=== PATIENT | female | born 1945 | race Caucasian/White ===

== ENCOUNTER 2016-12-24 07:23 | Outpatient (CLI) | payer MEDICARE, OTHER ==
[2016-12-24 13:41] LABS: BASOPHILS % (AUTO) 0.5 %; EOSINOPHILS # (AUTO) 0.2 10^3/uL (0.0-0.7); EOSINOPHILS % (AUTO) 3.5 %; HCT - HEMATOCRIT 38.8 % (37.0-47.0); HGB - HEMOGLOBIN 12.9 g/dL (12.0-16.0); LYMPHOCYTES # (AUTO) 1.9 10^3/uL (1.5-3.5); LYMPHOCYTES % (AUTO) 26.3 %; MEAN CORPUSCULAR HEMOGLOBIN 30.5 pg (27.0-31.0); MEAN CORPUSCULAR HGB CONC 33.3 g/dL (32.0-36.0); MEAN CORPUSCULAR VOLUME 91.5 fL (81.0-99.0); MONOCYTES # (AUTO) 0.6 10^3/uL (0.0-1.0); MONOCYTES % (AUTO) 8.7 %; NEUTROPHILS # (AUTO) 4.4 10^3/uL (1.5-6.6); RED BLOOD COUNT 4.24 10^6/uL (4.20-5.40); RED CELL DISTRIBUTION WIDTH 13.3 % (12.0-15.0); UNCORRECTED WHITE BLOOD COUNT 7.2 x10^3/uL; WHITE BLOOD COUNT 7.2 x10^3/uL (4.8-10.8)
[2016-12-24 13:48] LABS: ALBUMIN/GLOBULIN RATIO 1.3 (1.0-2.2); BILIRUBIN,TOTAL 0.6 mg/dL (0.2-1.0); BUN - BLOOD UREA NITROGEN 13 mg/dL (6-20); CALCIUM 9.2 mg/dL (8.5-10.3); CARBON DIOXIDE - CO2 30 mmol/L (21-32); CHLORIDE 104 mmol/L (101-111); CREATININE 0.9 mg/dL (0.4-1.0); GFR - MDRD 62 (>89); GLUCOSE 85 mg/dL (70-100); POTASSIUM 3.7 mmol/L (3.5-5.0); SODIUM 140 mmol/L (135-145); TOTAL PROTEIN 7.1 g/dL (6.7-8.2)
[2016-12-24 14:25] LABS: THYROID STIMULATING HORMONE 1.29 uIU/mL (0.34-5.60)
== END 2016-12-24 07:24 | disposition home or self-care (01) ==
LOC: LAB.WCP 07:23
PROVIDERS: ATTEND Family Medicine
DX: F41.9 Anxiety disorder, unspecified (principal); F32.9 Major depressive disorder, single episode, unspecified; F41.3 Other mixed anxiety disorders
CPT/HCPCS: 36415; 80053; 82607; 84443; 85025

== ENCOUNTER 2017-10-25 08:00 | Outpatient (CLI) | payer MEDICARE, OTHER ==
[2017-10-25 12:42] LABS: BASOPHILS % (AUTO) 0.5 %; EOSINOPHILS # (AUTO) 0.4 10^3/uL (0.0-0.7); EOSINOPHILS % (AUTO) 4.8 %; HGB - HEMOGLOBIN 13.7 g/dL (12.0-16.0); LYMPHOCYTES # (AUTO) 2.4 10^3/uL (1.5-3.5); LYMPHOCYTES % (AUTO) 29.9 %; MEAN CORPUSCULAR HEMOGLOBIN 29.7 pg (27.0-31.0); MEAN CORPUSCULAR HGB CONC 32.8 g/dL (32.0-36.0); MEAN CORPUSCULAR VOLUME 90.6 fL (81.0-99.0); MEAN PLATELET VOLUME 8.6 fL (7.9-10.8); MONOCYTES # (AUTO) 0.7 10^3/uL (0.0-1.0); MONOCYTES % (AUTO) 9.2 %; NEUTROPHILS # (AUTO) 4.4 10^3/uL (1.5-6.6); NEUTROPHILS % (AUTO) 55.6 %; PLT - PLATELET COUNT 309 10^3/uL (130-450); RED BLOOD COUNT 4.61 10^6/uL (4.20-5.40); RED CELL DISTRIBUTION WIDTH 13.9 % (12.0-15.0); WHITE BLOOD COUNT 7.9 x10^3/uL (4.8-10.8)
[2017-10-25 13:26] LABS: ALBUMIN/GLOBULIN RATIO 1.1 (1.0-2.2); ALKALINE PHOSPHATASE 77 IU/L (42-121); ALT ALANINE AMINOTRANSFERASE 23 IU/L (10-60); AST ASPARTATE AMINOTRANSFERASE 27 IU/L (10-42); BILIRUBIN,TOTAL 0.4 mg/dL (0.2-1.0); BUN - BLOOD UREA NITROGEN 11 mg/dL (6-20); CALCIUM 9.3 mg/dL (8.5-10.3); CARBON DIOXIDE - CO2 29 mmol/L (21-32); CHLORIDE 102 mmol/L (101-111); CHOL/HDL RATIO 2.5 (<4.4); CHOLESTEROL 194 mg/dL; CREATININE 0.8 mg/dL (0.4-1.0); GFR - MDRD 70 (>89); GLUCOSE 95 mg/dL (70-100); HDL CHOLESTEROL 78 mg/dL; LDL CHOLESTEROL,CALCULATED 101 mg/dL; LDL/HDL RATIO 1.3 (<4.4); SODIUM 140 mmol/L (135-145); TOTAL PROTEIN 7.6 g/dL (6.7-8.2); VLDL CHOLESTEROL 15 mg/dL
== END 2017-10-25 08:01 | disposition home or self-care (01) ==
LOC: LAB.WCP 08:00
PROVIDERS: ATTEND Family Medicine
DX: M51.86 Other intervertebral disc disorders, lumbar region (principal); E78.9 Disorder of lipoprotein metabolism, unspecified
CPT/HCPCS: 36415; 80053; 80061; 83721; 85025

== ENCOUNTER 2018-01-01 14:28 | Outpatient (CLI) | payer MEDICARE, OTHER ==
--- NOTE | 2018-01-02 17:00 | Mammography Report ---
DIGITAL SCREENING MAMMOGRAM: 01/01/2018 CLINICAL INDICATION: A 72-year-old with prior benign biopsy, bilateral implants for screening. TECHNIQUE: Routine CC and MLO projections as well as bilateral implant displaced views were obtained of the breasts. COMPARISON: 05/2014 FINDINGS: The breasts again demonstrate heterogeneously dense fibroglandular parenchyma bilaterally. Bilateral subpectoral implants are stable. Coarse and punctate, typically benign calcifications are present. No suspicious masses, clustered microcalcifications , or regions of architectural distortion are identified. IMPRESSION: BENIGN FINDINGS. RECOMMENDATION: Routine annual screening unless otherwise clinically indicated. BIRADS category 2 benign findings. STANDARD QUALIFYING STATEMENTS 1. This examination was reviewed with the aid of Computed-Aided Detection (CAD) . 2. A negative or benign imaging report should not delay biopsy if clinically suspicious findings are present. Consider surgical consultation if warranted. More than 5 % of cancers are not identified by imaging. 3. Dense breasts may obscure an underlying neoplasm. TD: 01/02/2018 15:09 SABINO
== END 2018-01-01 14:29 | disposition home or self-care (01) ==
LOC: DI 14:28
PROVIDERS: ATTEND Family Medicine
DX: Z12.31 Encounter for screening mammogram for malignant neoplasm of breast (principal); Z98.82 Breast implant status
CPT/HCPCS: 77067

== ENCOUNTER 2018-08-07 11:20 | Outpatient (CLI) | payer MEDICARE, OTHER ==
[2018-08-07 19:41] LABS: THYROID STIMULATING HORMONE 1.12 uIU/mL (0.34-5.60)
[2018-08-07 19:47] LABS: BASOPHILS % (AUTO) 0.6 %; EOSINOPHILS # (AUTO) 0.3 10^3/uL (0.0-0.7); EOSINOPHILS % (AUTO) 4.1 %; HGB - HEMOGLOBIN 13.4 g/dL (12.0-16.0); LYMPHOCYTES # (AUTO) 1.6 10^3/uL (1.5-3.5); LYMPHOCYTES % (AUTO) 26.3 %; MEAN CORPUSCULAR HEMOGLOBIN 29.8 pg (27.0-31.0); MEAN CORPUSCULAR VOLUME 93.1 fL (81.0-99.0); MEAN PLATELET VOLUME 8.7 fL (7.9-10.8); MONOCYTES # (AUTO) 0.6 10^3/uL (0.0-1.0); MONOCYTES % (AUTO) 10.4 %; NEUTROPHILS # (AUTO) 3.6 10^3/uL (1.5-6.6); NEUTROPHILS % (AUTO) 58.6 %; PLT - PLATELET COUNT 293 10^3/uL (130-450); RED BLOOD COUNT 4.48 10^6/uL (4.20-5.40); WHITE BLOOD COUNT 6.1 x10^3/uL (4.8-10.8)
[2018-08-07 20:30] LABS: % IRON SATURATION 27 % (20-50); ALBUMIN 3.8 g/dL (3.2-5.5); ALBUMIN/GLOBULIN RATIO 1.2 (1.0-2.2); ALKALINE PHOSPHATASE 68 IU/L (42-121); ALT ALANINE AMINOTRANSFERASE 20 IU/L (10-60); AST ASPARTATE AMINOTRANSFERASE 27 IU/L (10-42); BILIRUBIN,TOTAL 0.5 mg/dL (0.2-1.0); BUN - BLOOD UREA NITROGEN 14 mg/dL (6-20); CALCIUM 9.4 mg/dL (8.5-10.3); CARBON DIOXIDE - CO2 27 mmol/L (21-32); CHLORIDE 101 mmol/L (101-111); CREATININE 0.8 mg/dL (0.4-1.0); GFR - MDRD 70 (>89); GLUCOSE 83 mg/dL (70-100); IRON 96 ug/dL (28-170); SODIUM 134 mmol/L (135-145); TOTAL IRON BINDING CAPACITY 356 ug/dL (250-450); TRANSFERRIN 254 mg/dL (192-382)
== END 2018-08-07 23:59 | disposition home or self-care (01) ==
LOC: LAB.WCP 11:20
PROVIDERS: ATTEND Family Medicine
DX: R53.83 Other fatigue (principal); D64.9 Anemia, unspecified
CPT/HCPCS: 36415; 80053; 82607; 83540; 84443; 84466; 85025

== ENCOUNTER 2018-09-15 08:55 | Outpatient (CLI) | payer MEDICARE, OTHER ==
--- NOTE | 2018-09-15 11:55 | Mammography Report ---
Reason: BREAST LUMP OR MASS Procedure Date: 09/15/2018 Accession Number: [id number] / [id number] Procedure: MAURIZIO - Diagnostic Dig Bilat CPT Code: FULL RESULT: EXAM: Diagnostic Dig Bilat, Breast Ultrasound Right Unilateral Complete DATE: 09/15/2018 10:07 AM CLINICAL HISTORY: Palpable lump right upper outer quadrant. History of breast implants. COMPARISON: 01/01/2018 and 05/28/2014 MAMMOGRAPHY: TECHNIQUE: Bilateral CC and MLO views were obtained. Additional spot compression views are performed on the right. FINDINGS: The breast tissue is heterogeneously dense. Stable bilateral breast implants. On the left there is been no significant interval change. No suspicious masses, clustered microcalcifications, or regions of architectural distortion are identified. On the right in the area of the palpable upper outer quadrant lump 10 to 11 cm from the nipple there is a spiculated area of architectural distortion without associated microcalcifications. The right breast is otherwise unremarkable. RIGHT BREAST ULTRASOUND: TECHNIQUE: Real-time scanning by the low voltage electrician with me present in saved static images reviewed. FINDINGS: In the 9:30 position right breast 10 cm from the nipple there is a 3.1 x 3.5 cm solid complex irregular appearing area with posterior shadowing corresponding to the palpable finding. No internal vascularity is appreciated. IMPRESSION: Suspicious findings RECOMMENDATION: Ultrasound guided core biopsy right breast. Patient is scheduled for 09/16/2018 at 1:00 PM. BIRADS CATEGORY 5: Highly suspicious STANDARD QUALIFYING STATEMENTS: 1. This examination was not reviewed with the aid of Computer-Aided Detection (CAD). 2. A negative or benign imaging report should not delay biopsy if clinically suspicious findings are present. Consider surgical consultation if warrented. More than 5% of cancers are not identified by imaging. 3. Dense breasts may obscure an underlying neoplasm. 4. This examination was reviewed with the aid of 3D breast imaging (tomosynthesis).
== END 2018-09-15 08:56 | disposition home or self-care (01) ==
LOC: DI 08:55
PROVIDERS: ATTEND Internal Medicine Gastroenterology
DX: N63.11 Unspecified lump in the right breast, upper outer quadrant (principal)
CPT/HCPCS: 76641; 77066

== ENCOUNTER 2018-09-16 12:37 | Outpatient (CLI) | payer MEDICARE, OTHER ==
[2018-09-16] MEDS ORDERED: BUFFERED LIDOCAINE 10 ML SYRINGE ONE (13:15)
[2018-09-16] MEDS ORDERED: BUPIVACAINE 0.5%-EPI 1:200000 PF 10 ML VIAL ONE (13:15)
--- NOTE | 2018-09-16 16:33 | Mammography Report ---
Reason: ABN MAMMO - RT BREAST MASS Procedure Date: 09/16/2018 Accession Number: [id number] / [id number] Procedure: MAURIZIO - Diagnostic Dig RT CPT Code: FULL RESULT: EXAM: Diagnostic Dig RT, Ultrasound Biopsy Right Breast Core DATE: 09/16/2018 2:39 PM CLINICAL HISTORY: Area of architectural distortion and spiculation right upper outer quadrant approximately 11 cm from the nipple. COMPARISON: Bilateral mammography and right breast ultrasound 09/15/2018. PROCEDURE: ULTRASOUND-GUIDED NEEDLE BIOPSY RIGHT BREAST. Informed consent was obtained. Using standard aseptic technique, both 1% buffered lidocaine and Sensorcaine were injected into the right breast for local anesthesia. A small maverick was made in the skin with a #11 blade. A 14-gauge Achieve needle was used to obtain 5 specimens. A specialized biopsy marker clip was placed into the biopsy cavity under ultrasound guidance. The patient was taken to separate mammography machine and a two-view digital mammography was performed to verify the clip placement and any complications. The wound was dressed in the standard fashion. The patient was observed for approximately 15 minutes, then was discharged from diagnostic imaging Department in good condition following instructions on wound care and obtaining biopsy results. The patient is scheduled to receive the biopsy results from the referring physician. The tissue was sent for histologic analysis. RIGHT BREAST MAMMOGRAM: A postprocedure unilateral right mammogram shows appropriate clip positioning adjacent to the right upper outer quadrant architectural distortion and spiculation. IMPRESSION: Ultrasound-guided biopsy of the right breast. AN ADDENDUM WILL REMAIN TO THIS REPORT WHEN PATHOLOGY IS REVIEWED TO ESTABLISH CONCORDANCE.
[2018-09-16] MEDS ORDERED: BUFFERED LIDOCAINE 10 ML SYRINGE IU ONE (17:02)
[2018-09-16] MEDS ORDERED: BUPIVACAINE 0.5%-EPI 1:200000 PF 10 ML VIAL SUBQ ONE (17:02)
== END 2018-09-16 12:38 | disposition home or self-care (01) ==
LOC: DI 12:37
PROVIDERS: ATTEND Internal Medicine Gastroenterology
DX: C50.411 Malignant neoplasm of upper-outer quadrant of right female breast (principal); Z17.0 Estrogen receptor positive status [ER+]
CPT/HCPCS: 19083

== ENCOUNTER 2018-10-06 08:43 | Outpatient (CLI) | payer MEDICARE, OTHER ==
[2018-10-06] MEDS ORDERED: GADOBUTROL 10 MMOL/10 ML VIAL ONE (09:46)
[2018-10-06] MEDS ORDERED: GADOBUTROL 10 MMOL/10 ML VIAL IVP ONE (10:39)
--- NOTE | 2018-10-07 10:11 | MRI Report ---
Reason: BREAST CANCER,RIGHT Procedure Date: 10/06/2018 Accession Number: [id number] / [id number] Procedure: MRI - Breast W/WO Cont CPT Code: 14192 FULL RESULT: EXAM: Breast W/WO Cont DATE: 10/06/2018 10:46 AM CLINICAL HISTORY: BREAST CANCER,RIGHT COMPARISON: 09/16/2018 through 05/28/2014. TECHNIQUE: Dedicated breast coil: Axial - precontrast STIR Axial - postcontrast sequential 1 minute three-dimensional isotropic (x 5) Axial - high-resolution volumetric images CONTRAST USED: 10 mL Gadavist (gadolinium). POSTPROCESSING: Subtraction dynamic/curve analysis and multiplanar reformations with CAD stream FINDINGS: Right breast: The biopsy-proven malignancy in the right breast laterally measures 2.7 x 2.0 cm on image 427 series 601. Several avidly enhancing suspicious lymph nodes are noted reaching from the mass towards the axillary tail: Image 292, image 152, image 137 and image 292. Each of these demonstrates the same enhancement curve observed within the biopsy-proven malignancy, type III. Intact breast implant is noted. Left breast: No suspicious enhancement is identified. The breast implant appears intact. IMPRESSION: Suspicious enhancement along the right breast axillary tail lymph node chain, as described, in the setting of known right breast malignancy. No suspicious left breast findings. BI-RADS 6 COMMENT: The literature indicates that a negative dynamic breast MRI has a high sensitivity and specificity for the detection of invasive carcinoma (to a threshold of 5 mm). MRI is not reliably sensitive for detecting ductal carcinoma in situ or large invasive neoplasms with only minimal enhancement (i.e. mucinous carcinoma). Normal-appearing lymph nodes on MRI may contain microscopic tumor. Appropriate clinical mammographic and sonographic followup should be performed if recommended. Negative MRI should not dissuade further evaluation of any suspicious mammographic calcifications and/or worrisome palpable masses.
== END 2018-10-06 08:44 | disposition home or self-care (01) ==
LOC: DI 08:43
PROVIDERS: ATTEND Internal Medicine Gastroenterology
DX: C50.911 Malignant neoplasm of unspecified site of right female breast (principal); R93.89 Abnormal findings on diagnostic imaging of other specified body structures; Z98.82 Breast implant status
CPT/HCPCS: 77049; A9585

== ENCOUNTER 2018-10-15 10:43 | Outpatient (CLI) | payer MEDICARE, OTHER ==
[2018-10-15] MEDS ORDERED: BUPIVACAINE 0.5%-EPI 1:200000 PF 10 ML VIAL ONE ×2 (11:07→11:12)
[2018-10-15] MEDS ORDERED: BUFFERED LIDOCAINE 10 ML SYRINGE ONE ×2 (11:07→11:12)
[2018-10-15] MEDS ORDERED: BUPIVACAINE 0.5%-EPI 1:200000 PF 10 ML VIAL SUBQ ONE (13:05)
[2018-10-15] MEDS ORDERED: BUFFERED LIDOCAINE 10 ML SYRINGE IU ONE (13:05)
--- NOTE | 2018-10-15 16:46 | Ultrasound Report ---
Reason: RT BR CA W/ABN LYMPHNODES ON MRI Procedure Date: 10/15/2018 Accession Number: [id number] / [id number] Procedure: US - Biopsy Breast Core CPT Code: FULL RESULT: EXAM: Biopsy Breast Core DATE: 10/15/2018 12:49 PM CLINICAL HISTORY: 73-year-old with biopsy-proven malignancy upper outer right breast who underwent preoperative MRI showing a separate highly suspicious mass upper inner breast for biopsy, and an equivocal low axillary/intramammary lymph node for possible biopsy. TECHNIQUE: Informed consent was obtained. Preprocedural scanning of the axilla and upper inner breast performed by the radiologist; single site biopsy of the 2:00 breast 10 cm from the nipple was then performed following procedural scanning. Entry site was localized and marked. Skin site was prepped and draped in the usual sterile fashion. Skin and deeper tissues were anesthetized with a total of 8 cc of buffered 1% lidocaine and 9 cc of Sensorcaine. Small dermatotomy was made in the skin. 13-gauge coaxial needle guide was advanced into position. Through the needle guide, 3 passes were made with a 14-gauge Achieve needle biopsy system with returns of long cores of tissue. Tissue was sent in formalin for histologic analysis. Biopsy marker was then placed with marker position confirmed with ultrasound. Biopsy site was sterilely dressed. Patient tolerated the procedure well and was discharged in good condition. COMPARISON: Breast MRI 10/06/2018; mammograms and ultrasound from 09/16/2018 through 05/28/2014 FINDINGS: Preprocedural scanning of the right breast at 9:30 o'clock, 12 cm from the nipple demonstrates an morphologically normal 8 mm low axillary/lateral intramammary lymph node corresponding to equivocal finding at MRI. Cortical thickness is 2 mm, within normal limits. Biopsy of this lymph node therefore was not performed. Targeted ultrasound at 2:00, 10 cm from the nipple demonstrates an irregular, hypoechoic mildly vascular mass with angular an indistinct margins corresponding to the high suspicion the mass noted on MRI. Mass measures 13 x 15 x 19 mm sonographically. Biopsy of this finding was subsequently performed as described above. IMPRESSION: 1. Successful ultrasound-guided biopsy and marker placement of high suspicion 19 mm mass 2:00 right breast 10 cm from the nipple. Final disposition and recommendations are pending histology. Radiologic/pathologic concordance will be performed when the histologic results are returned; patient is planning to receive her results from Dr. Lamont Elizabeth. 2. Equivocal lymph node at MR corresponds to morphologically normal lymph node at ultrasound. Lymph node biopsy was therefore not performed.
== END 2018-10-15 10:44 | disposition home or self-care (01) ==
LOC: DI 10:43
PROVIDERS: ATTEND Internal Medicine Gastroenterology
DX: C50.211 Malignant neoplasm of upper-inner quadrant of right female breast (principal); Z17.0 Estrogen receptor positive status [ER+]; C50.411 Malignant neoplasm of upper-outer quadrant of right female breast
CPT/HCPCS: 19083

== ENCOUNTER 2018-10-22 14:11 | Outpatient (CLI) | payer MEDICARE, OTHER ==
[2018-10-22 14:31] LABS: BASOPHILS # (AUTO) 0.1 10^3/uL (0.0-0.1); BASOPHILS % (AUTO) 1.5 %; EOSINOPHILS # (AUTO) 0.3 10^3/uL (0.0-0.7); EOSINOPHILS % (AUTO) 3.7 %; HGB - HEMOGLOBIN 13.8 g/dL (12.0-16.0); LYMPHOCYTES # (AUTO) 2.4 10^3/uL (1.5-3.5); LYMPHOCYTES % (AUTO) 27.1 %; MEAN CORPUSCULAR HEMOGLOBIN 30.4 pg (27.0-31.0); MEAN CORPUSCULAR HGB CONC 33.5 g/dL (32.0-36.0); MEAN PLATELET VOLUME 8.4 fL (7.9-10.8); MONOCYTES # (AUTO) 0.7 10^3/uL (0.0-1.0); MONOCYTES % (AUTO) 8.3 %; NEUTROPHILS # (AUTO) 5.2 10^3/uL (1.5-6.6); NEUTROPHILS % (AUTO) 59.4 %; PLT - PLATELET COUNT 276 10^3/uL (130-450); RED BLOOD COUNT 4.54 10^6/uL (4.20-5.40); WHITE BLOOD COUNT 8.8 x10^3/uL (4.8-10.8)
[2018-10-22 14:54] LABS: ALBUMIN 4.2 g/dL (3.2-5.5); ALBUMIN/GLOBULIN RATIO 1.1 (1.0-2.2); BILIRUBIN,TOTAL 0.6 mg/dL (0.2-1.0); CALCIUM 9.8 mg/dL (8.5-10.3); CREATININE 0.8 mg/dL (0.4-1.0); TOTAL PROTEIN 7.9 g/dL (6.7-8.2)
--- NOTE | 2018-10-23 09:39 | XRAY Report ---
Reason: BREAST CANCER,RIGHT, [id number] Procedure Date: 10/22/2018 Accession Number: [id number] / [id number] Procedure: XR - Chest 2 View X-Ray CPT Code: 36319 FULL RESULT: EXAM: CHEST RADIOGRAPHY EXAM DATE: 10/22/2018 02:30 PM. CLINICAL HISTORY: Breast cancer, right, [id number]. COMPARISON: 01/18/2015 10:27 AM. ESOPHAGRAM 08/20/2014 9:15 AM. TECHNIQUE: 2 views. FINDINGS: Lungs/Pleura: No focal opacities evident. No pleural effusion. No pneumothorax. Normal volumes. Mediastinum: Heart and mediastinal contours are unremarkable. Other: Very large hiatal hernia with the majority of the stomach and a loop of large bowel contained within this hernia. IMPRESSION: 1. No infiltrates or edema. 2. Very large hiatal hernia containing majority of stomach and a loop of large bowel. RADIA
== END 2018-10-22 14:12 | disposition home or self-care (01) ==
LOC: LAB 14:11
PROVIDERS: ATTEND Internal Medicine Gastroenterology
DX: C50.919 Malignant neoplasm of unspecified site of unspecified female breast (principal); K44.9 Diaphragmatic hernia without obstruction or gangrene
CPT/HCPCS: 36415; 71046; 80053; 85025; 93005

== ENCOUNTER 2018-10-27 08:09 | Day surgery (SDC) | payer MEDICARE, OTHER ==
[~2018-10-27 08:09] MED LIST: ceFAZolin 2 GM/50 ML 2 GM/50 ML BAG IV ONE
[2018-10-27] MEDS ORDERED: BUFFERED LIDOCAINE 10 ML SYRINGE ONE (08:49)
[2018-10-27] MEDS ORDERED: LACTATED RINGERS 1,000 ML IV ONE ×3 (09:13→19:15)
[2018-10-27] MEDS ORDERED: LORazepam 1 MG TABLET PO ONE (10:00)
[2018-10-27] MEDS ORDERED: BUFFERED LIDOCAINE 10 ML SYRINGE IU ONE (10:55)
--- NOTE | 2018-10-27 12:08 | ANESTHESIA ---
Pre-Anesthesia VS, & Labs - Diagnosis right breast cancer - Procedure right breast lumpectomy X2 after needle localization, right axillary node, sentinal node biopsy Vital Signs: Temp Pulse Resp BP Pulse Ox 36.4 C L 80 16 143/82 H 94 10/27/18 08:30 10/27/18 08:30 10/27/18 08:30 10/27/18 08:30 10/27/18 08:30 Height 5 ft 2 in Weight (kg) 97 kg Body Mass Index 40.2 - NPO >8 hours - Is Patient ?: No Home Medications and Allergies Home Medications: Ambulatory Orders Cyanocobalamin (Vitamin B-12) [Cyanocobalamin Injection] 1,000 mcg IJ ONCE 10/22/18 Oxybutynin Chloride [Ditropan Xl] 15 mg PO DAILY 10/22/18 clonazePAM [Clonazepam] 1 mg PO BID PRN 10/22/18 Active Medications Lidocaine/Sodium Bicarbonate (Buffered Lidocaine) 20 ml IU ONCE ONE Stop: 10/27/18 10:56 Last Admin: 10/27/18 10:56 Dose: 20 ml Simvastatin 20 mg PO QPM 09/07/14 Cyanocobalamin (Vitamin B-12) [Cyanocobalamin Injection] 1,000 mcg IJ ONCE 10/22/18 Oxybutynin Chloride [Ditropan Xl] 15 mg PO DAILY 10/22/18 clonazePAM [Clonazepam] 1 mg PO BID PRN 10/22/18 Allergies/Adverse Reactions: Allergies Allergy/AdvReac Type Severity Reaction Status Date / Time pseudoephedrine HCl * Allergy Rash Unverified 06/09/14 14:41 [From Actifed] triprolidine HCl * Allergy Rash Unverified 06/09/14 14:41 [From Actifed] Anes History & Medical History - Anesthetic History Anesthesia Complications: reports: No previous complications - Medical History Cardiovascular: reports: High cholesterol Pulmonary: reports: None Gastrointestinal: reports: Hiatal hernia Urinary: reports: None Musculoskeletal: reports: Osteoarthritis, Chronic back pain Endocrine/Autoimmune: reports: None Skin: reports: Other - Surgical History General: Colonoscopy, EGD Eyes Ears Nose Throat (EENT): Tonsil/Adenoidectomy Exam General: Alert Dental: WNL Mouth Opening: Greater than 4 Fingerbreadths Mallampati classification: II Thyromental Distance: greater than 6 cm Respiratory: Lungs clear Cardiovascular: Regular rate, Normal S1, Normal S2 Mental/Cognitive Status: Alert/Oriented X3 Plan Anesthesia Type: General Consent for Procedure(s) Verified and Reviewed: Yes Code Status: Attempt Resuscitation ASA classification: 2-Mild systemic disease Is this case an emergency?: No
[2018-10-27] MEDS ORDERED: BUPIVACAINE 0.5% PF 30 ML VIAL INFIL ONE (15:27)
[2018-10-27] MEDS ORDERED: METHYLENE BLUE 0.5% 50 MG/10 ML AMPULE IV ONE (15:46)
--- NOTE | 2018-10-27 15:51 | Nuclear Medicine Report ---
Reason: RT BREAST CA Procedure Date: 10/27/2018 Accession Number: [id number] / [id number] Procedure: NM - Lymph Node Scintigraphy CPT Code: FULL RESULT: EXAM: SENTINEL LYMPH NODE RADIOTRACER INJECTION WITH IMAGING EXAM DATE: 10/27/2018 11:58 AM. CLINICAL HISTORY: 73-year-old female with breast cancer, undergoing a preoperative procedure. COMPARISON: None. TECHNIQUE: The injection site of the right breast was cleansed according to protocol. Next, a total of 1.5 mCi Tc-99m filtered sulfur colloid in 1 cc saline was injected into the same site. After appropriate delay, the patient was imaged according to the protocol. FINDINGS: Right axillary lymph node drainage is identified with up to 2 sentinel nodes visualized prior to ending the examination. The patient tolerated the procedure well. IMPRESSION: 1. Braxton lymph node injection, without complication. 2. Two foci in the right axilla, compatible with sentinel lymph node. RADIA ADDENDUM: 10/28/18 08:17 The actual dose delivered to the patient is 0.5 mCi of technetium 99 filtered sulfur colloid in 1 cc saline.
[2018-10-27] MEDS ORDERED: HYDROmorphone 1 MG/ML CARPUJECT IVP ONE (16:00)
[2018-10-27] MEDS ORDERED: ePHEDrine 50 MG/ML VIAL IVP ONE (16:00)
[2018-10-27] MEDS ORDERED: PHENYLEPHRINE 50 MG/5 ML VIAL IV ONE (16:00)
[2018-10-27] MEDS ORDERED: fentaNYL 100 MCG/2 ML VIAL IVP ONE (16:00)
[2018-10-27] MEDS ORDERED: ACETAMINOPHEN 1,000 MG/100 ML 100 ML IV ONE (16:00)
[2018-10-27] MEDS ORDERED: SODIUM CHLORIDE 0.9% 100 ML BAG IV ONE (16:00)
[2018-10-27] MEDS ORDERED: DEXAMETHASONE 4 MG/ML VIAL IVP ONE (16:00)
[2018-10-27] MEDS ORDERED: PROPOFOL 200 MG/20 ML VIAL IVP ONE (16:00)
[2018-10-27] MEDS ORDERED: MIDAZOLAM 2 MG/2 ML VIAL IVP ONE (16:00)
[2018-10-27] MEDS ORDERED: ONDANSETRON 4 MG/2 ML VIAL IVP ONE (16:00)
--- NOTE | 2018-10-27 16:46 | Ultrasound Report ---
Reason: RT BREAST CA Procedure Date: 10/27/2018 Accession Number: [id number] / [id number] Procedure: US - Wire Localization CPT Code: FULL RESULT: EXAM: Wire Localization, Wire Each Additional Lesion, Wire Each Additional Lesion DATE: 10/27/2018 10:30 AM CLINICAL HISTORY: RT BREAST CA ? COMPARISON: Diagnostic mammogram 09/15/2018, breast MRI 10/13/2018. TECHNIQUE: Following written informed consent and establishment of a sterile field with usual skin prep and draping technique, a targeted ultrasound guided wire localization was performed of the right breast in areas of 2 biopsy-proven breast cancers. The first cancer in the upper outer quadrant, the second cancer in the upper inner quadrant. A total of 3 wires were placed under ultrasound guidance. Wire 1: Upper outer quadrant within the biopsied mass near the biopsy clip.? Wire 2: Upper outer breast along the breast tissue: At the sonographic anterior margin of the infiltrative component of the more lateral breast mass as initially identified by MRI. Wire 3: Upper inner quadrant within the biopsied mass. FINDINGS: The 2 shadowing masses in the upper outer and upper inner quadrant respectively are readily identified sonographically. Wire placement is performed following local lidocaine anesthesia under sterile technique with wire positioning near the visualized clip at the upper outer mass. The upper inner mass is targeted in such a fashion that the wire does not penetrate the chest wall which is invaded by the mass. Sonographic examination of the anterior extent of the more lateral mass demonstrates what is felt to represent a sonographic correlate to the infiltrative component previously seen on MRI. A third wire is placed sonographically to aid with resection cavity trajectory but is not considered a definitive marker of anterior extent of disease. IMPRESSION: Wire location as described. Recommendation: Please note that this ultrasound-guided wire localization is performed following extensive discussion between the performing breast surgeon, the patient, the oncologist, and breast radiologist. The overall radiologic recommendation is for mastectomy. This wire localization is performed in an attempt to aid the multiple site breast conservation surgery approach the patient has elected. TIFFANYA
--- NOTE | 2018-10-27 16:46 | Ultrasound Report ---
Reason: RT BREAST CA Procedure Date: 10/27/2018 Accession Number: [id number] / [id number] Procedure: US - Wire Each Additional Lesion CPT Code: 80161 FULL RESULT: EXAM: Wire Localization, Wire Each Additional Lesion, Wire Each Additional Lesion DATE: 10/27/2018 10:30 AM CLINICAL HISTORY: RT BREAST CA ? COMPARISON: Diagnostic mammogram 09/15/2018, breast MRI 10/13/2018. TECHNIQUE: Following written informed consent and establishment of a sterile field with usual skin prep and draping technique, a targeted ultrasound guided wire localization was performed of the right breast in areas of 2 biopsy-proven breast cancers. The first cancer in the upper outer quadrant, the second cancer in the upper inner quadrant. A total of 3 wires were placed under ultrasound guidance. Wire 1: Upper outer quadrant within the biopsied mass near the biopsy clip.? Wire 2: Upper outer breast along the breast tissue: At the sonographic anterior margin of the infiltrative component of the more lateral breast mass as initially identified by MRI. Wire 3: Upper inner quadrant within the biopsied mass. FINDINGS: The 2 shadowing masses in the upper outer and upper inner quadrant respectively are readily identified sonographically. Wire placement is performed following local lidocaine anesthesia under sterile technique with wire positioning near the visualized clip at the upper outer mass. The upper inner mass is targeted in such a fashion that the wire does not penetrate the chest wall which is invaded by the mass. Sonographic examination of the anterior extent of the more lateral mass demonstrates what is felt to represent a sonographic correlate to the infiltrative component previously seen on MRI. A third wire is placed sonographically to aid with resection cavity trajectory but is not considered a definitive marker of anterior extent of disease. IMPRESSION: Wire location as described. Recommendation: Please note that this ultrasound-guided wire localization is performed following extensive discussion between the performing breast surgeon, the patient, the oncologist, and breast radiologist. The overall radiologic recommendation is for mastectomy. This wire localization is performed in an attempt to aid the multiple site breast conservation surgery approach the patient has elected. TIFFANYA
--- NOTE | 2018-10-27 16:46 | Ultrasound Report ---
Reason: RT BREAST CA Procedure Date: 10/27/2018 Accession Number: [id number] / [id number] Procedure: US - Wire Each Additional Lesion CPT Code: 41897 FULL RESULT: EXAM: Wire Localization, Wire Each Additional Lesion, Wire Each Additional Lesion DATE: 10/27/2018 10:30 AM CLINICAL HISTORY: RT BREAST CA ? COMPARISON: Diagnostic mammogram 09/15/2018, breast MRI 10/13/2018. TECHNIQUE: Following written informed consent and establishment of a sterile field with usual skin prep and draping technique, a targeted ultrasound guided wire localization was performed of the right breast in areas of 2 biopsy-proven breast cancers. The first cancer in the upper outer quadrant, the second cancer in the upper inner quadrant. A total of 3 wires were placed under ultrasound guidance. Wire 1: Upper outer quadrant within the biopsied mass near the biopsy clip.? Wire 2: Upper outer breast along the breast tissue: At the sonographic anterior margin of the infiltrative component of the more lateral breast mass as initially identified by MRI. Wire 3: Upper inner quadrant within the biopsied mass. FINDINGS: The 2 shadowing masses in the upper outer and upper inner quadrant respectively are readily identified sonographically. Wire placement is performed following local lidocaine anesthesia under sterile technique with wire positioning near the visualized clip at the upper outer mass. The upper inner mass is targeted in such a fashion that the wire does not penetrate the chest wall which is invaded by the mass. Sonographic examination of the anterior extent of the more lateral mass demonstrates what is felt to represent a sonographic correlate to the infiltrative component previously seen on MRI. A third wire is placed sonographically to aid with resection cavity trajectory but is not considered a definitive marker of anterior extent of disease. IMPRESSION: Wire location as described. Recommendation: Please note that this ultrasound-guided wire localization is performed following extensive discussion between the performing breast surgeon, the patient, the oncologist, and breast radiologist. The overall radiologic recommendation is for mastectomy. This wire localization is performed in an attempt to aid the multiple site breast conservation surgery approach the patient has elected. TIFFANYA
[2018-10-27] MEDS ORDERED: ACETAMINOPHEN 325 MG TABLET PO PRN (18:34)
[2018-10-27] MEDS ORDERED: ONDANSETRON 4 MG/2 ML VIAL IVP PRN (18:34)
[2018-10-27] MEDS ORDERED: oxyCODONE 5 MG TABLET PO PRN (18:34)
[2018-10-27] MEDS ORDERED: HYDROmorphone 0.5 MG/0.5 ML SYRINGE IVP PRN (18:34)
[2018-10-27] MEDS: fentaNYL 100 MCG/2 ML VIAL ONE ×2 (18:48→19:04)
[2018-10-27 21:09] VITALS: BP 130/52
--- NOTE | 2018-10-27 22:12 | OPERATIVE REPORT ---
DATE OF SERVICE: 10/27/2018 Physician: Lamont Elizabeth MD PREOPERATIVE DIAGNOSIS: Invasive ductal carcinoma of the right breast x2, involving the upper outer quadrant and upper inner quadrant. POSTOPERATIVE DIAGNOSIS: Invasive ductal carcinoma of the right breast x2, involving the upper outer quadrant and upper inner quadrant. PROCEDURES PERFORMED 1. Right breast lumpectomy x2 following needle localization (upper outer quadrant, upper inner quadr ant). 2. Right axillary sentinel lymph node dissection. 3. Intraoperative mapping of sentinel lymph nodes including injection of methylene blue dye for same . ANESTHESIA: General endotracheal by Daphne Hill CRNA SURGEON: Lamont Elizabeth MD MANAGER TALENT ACQUISITION: Joaquín Yin MD ESTIMATED BLOOD LOSS: 100 mL. COMPLICATIONS: None. DRAINS: None. FINDINGS: Specimen mammography showed the marking clips in both specimens from the upper inner and u pper outer quadrants. Two normal-sized hot lymph nodes were identified in level 1 of the right axill a. INDICATIONS: Patient is a 73-year-old woman with a history of remote bilateral submuscular implants for breast augmentation with a recent diagnosis of invasive ductal carcinoma in the upper outer quadr ant of the right breast diagnosed with mammography and ultrasonography. Further evaluation with MRI revealed a second primary in the upper inner quadrant of the right breast confirmed with image-guided biopsy. The patient insisted on breast conservation therapy and therefore was advised to undergo ri t breast lumpectomy x2 following needle localization and right axillary sentinel lymph node biopsy. Preoperative evaluation showed no evidence of abnormal lymph nodes in the axilla; however, there wa s concern about the upper inner quadrant tumor encroaching upon the capsule of the breast implant. TECHNIQUE: After informed consent, preoperative needle localization x2 and lymphoscintigraphy with i dentification was thought to be a sentinel lymph node in the low right axilla, the patient was taken to the operating room and was placed under general endotracheal anesthesia. Preoperative preparation also included application of sequential calf compression boots, administration of 2 g cefazolin intr avenously within an hour of the incision. Her right breast and axilla were prepared with ChloraPrep solution and draped in the usual sterile fashion. Approximately 1 mL of methylene blue was injected in multiple aliquots along the edge of the nipple a reola complex and massaged for 5 minutes. A [employer] counter was used to attempt to identify a sentine l lymph node in the right axilla; however, no clear hot area could be identified, just a gradual dimi nution of uptake from the injection site in the nipple towards the axilla. Nevertheless, a low trans verse incision was made in the right axilla, carried down through subcutaneous tissues. Hemostasis a chieved with electrocautery and with the LigaSure device. The lower axilla was explored, and using t he [employer] counter, 2 small grossly normal-appearing lymph nodes were identified and seen to have incr eased uptake of tracer with time counts in the 400-500 each and these were sent separately labeled as sentinel lymph nodes 1 and 2. There was no visible blue dye present in the axilla, either in the ly mphatic or in the lymph node despite considerable exploration in the area. Some tissue in the lower right axilla was excised en bloc and sent separately labeled as additional lymphatic tissue from leve l 1. It was thought that prior surgery for breast augmentation has potentially interrupted lymphatic flow and made identification of a sentinel lymph node difficult. After hemostasis assured. The axi llary wound was irrigated with sterile saline and then closed with 4-0 Monocryl subcuticular skin gilberto sure and Dermabond. Attention was turned to the lumpectomy in the upper outer quadrant. Two needles had been used. The lateral needle was placed at the site of the main mass of the tumor and the more medial needle placed at what was thought to be the medial edge of the associated non-mass enhancement noted on MRI. An i ncision was made between the 2 needles oriented laterally. Skin flaps were raised circumferentially and the tissue encompassing both needles and the intervening tissue was then widely excised down to a nd including the pectoral fascia. The implant was not encountered. The specimen was sent for pathol ogic evaluation after specimen mammography confirmed the presence of the marking clip within the spec imen. After hemostasis was assured, the wound was irrigated with saline solution and then closed wit h a single layer of 4-0 Monocryl subcuticular skin closure followed by Dermabond. Instruments, gowns and gloves were changed and attention was turned towards the tumor in the upper in ner quadrant. A transverse oriented incision was then made extending from the needle exit site in th e upper inner quadrant medially towards the sternum. Hemostasis achieved with electrocautery. Skin flaps were raised circumferentially and the tissue surrounding the tip of the needle and associated g uidewire was also widely excised down to and including the pectoral fascia and capsule of the implant . A portion of the implant was exposed in the course of this dissection, but the implant was not rup tured. Margin maps were actually used for both specimens to maintain orientation prior to complete r esection and the tissue was also sent for specimen mammography and then pathologic evaluation. After hemostasis was achieved, the wound was irrigated with sterile saline and wound closure was agai n accomplished with a single layer of 4-0 Monocryl subcuticular skin closure followed by Dermabond. Anesthesia was terminated and patient transferred out of the operating room in satisfactory condition . Sponge and needle counts were correct x2 and no drains were used. cc: Felix Mclean MD TD: 10/27/2018 19:02
--- NOTE | 2018-10-28 08:40 | Mammography Report ---
Reason: RT BREAST CA Procedure Date: 10/27/2018 Accession Number: [id number] / [id number] Procedure: MAURIZIO - Breast Specimen Surgical CPT Code: FULL RESULT: EXAM: Breast Specimen Surgical DATE: 10/27/2018 5:20 PM CLINICAL HISTORY: RT BREAST CA TECHNIQUE: Specimen radiographs of 2 separate gross breast resection specimens obtained. COMPARISON: 09/16/2018 through 01/01/2018. FINDINGS: The specimen identified as arising from the patient's medial right breast contains a biopsy marker as well as surface markers identifying the deep, superficial, cranial, caudal as well as medial and lateral sides. The specimen identified as arising from the patient's lateral right breast contains a biopsy marker, localization wire and needle as well as surface markers identifying the deep, superficial, cranial, caudal as well as medial and lateral sides. IMPRESSION: Two resection specimens with expected biopsy clips in each.
== END 2018-10-27 21:59 | disposition home or self-care (01) ==
LOC: DI 08:09 → OBS 19:52 → DI 21:59
PROVIDERS: ATTEND Internal Medicine Gastroenterology
PROC: 0HBT0ZZ Excision of Right Breast, Open Approach (ICD-10-PCS; principal; 2018-10-27 12:00)
PROC: 07B50ZX Excision of Right Axillary Lymphatic, Open Approach, Diagnostic (ICD-10-PCS; 2018-10-27 12:00)
DX: C50.411 Malignant neoplasm of upper-outer quadrant of right female breast (principal); C50.211 Malignant neoplasm of upper-inner quadrant of right female breast; Z17.0 Estrogen receptor positive status [ER+]; E66.9 Obesity, unspecified; Z68.35 Body mass index [BMI] 35.0-35.9, adult; R41.3 Other amnesia; F32.9 Major depressive disorder, single episode, unspecified; F41.9 Anxiety disorder, unspecified; F43.22 Adjustment disorder with anxiety; K21.9 Gastro-esophageal reflux disease without esophagitis; M51.86 Other intervertebral disc disorders, lumbar region; R32 Unspecified urinary incontinence; E78.5 Hyperlipidemia, unspecified; G47.62 Sleep related leg cramps; R03.0 Elevated blood-pressure reading, without diagnosis of hypertension; R53.83 Other fatigue; Z79.891 Long term (current) use of opiate analgesic; Z79.899 Other long term (current) drug therapy; Z87.891 Personal history of nicotine dependence; Z98.82 Breast implant status
CPT/HCPCS: 19285; 19286; 19301; 38525; 76098; 78195; 88305; 88307; 88341; 88342; A9270; J0131; J0690; J1170; J7120; J8499

== ENCOUNTER 2018-11-10 09:03 | Day surgery (SDC) | payer MEDICARE, OTHER ==
[2018-11-10] MEDS ORDERED: LACTATED RINGERS 1,000 ML IV ONE ×3 (09:18→14:09)
[2018-11-10] MEDS ORDERED: ceFAZolin 2 GM/50 ML 0 GM/0 ML BAG IV ONE (09:23)
--- NOTE | 2018-11-10 09:40 | ANESTHESIA ---
Pre-Anesthesia VS, & Labs - Diagnosis R breast cancer - Procedure R simple mastectomy Vital Signs: Temp Pulse Resp BP Pulse Ox 37.0 C 86 16 151/84 H 96 11/10/18 09:31 11/10/18 09:31 11/10/18 09:31 11/10/18 09:31 11/10/18 09:31 Height 5 ft 2 in Body Mass Index 40.2 - NPO >8 hours - Is Patient ?: No - Lab Results Lab results reviewed: Yes Home Medications and Allergies Simvastatin 20 mg PO QPM 09/07/14 Oxybutynin Chloride [Ditropan Xl] 15 mg PO DAILY 10/22/18 Allergies/Adverse Reactions: Allergies Allergy/AdvReac Type Severity Reaction Status Date / Time pseudoephedrine HCl * Allergy Rash Verified 11/10/18 09:31 [From Actifed] triprolidine HCl * Allergy Rash Verified 11/10/18 09:31 [From Actifed] Anes History & Medical History - Anesthetic History Anesthesia Complications: reports: No previous complications Family history of Anesthesia Complications: Denies Family history of Malignant Hyperthermia: Denies - Medical History Cardiovascular: reports: High cholesterol Pulmonary: reports: None Gastrointestinal: reports: Hiatal hernia Urinary: reports: None Musculoskeletal: reports: Osteoarthritis, Chronic back pain Endocrine/Autoimmune: reports: None Skin: reports: Other Smoking Status: Never smoker - Surgical History General: Colonoscopy, EGD Eyes Ears Nose Throat (EENT): Tonsil/Adenoidectomy Exam General: Alert, Oriented x3 Dental: WNL Mouth Openin Fingerbreadth Neck Mobility: Normal Mallampati classification: II Thyromental Distance: 4-6 cm Respiratory: Lungs clear, Normal breath sounds, No respiratory distress Cardiovascular: Regular rate Neurological: Normal speech Mental/Cognitive Status: Alert/Oriented X3, Normal for patient Plan Anesthesia Type: General Consent for Procedure(s) Verified and Reviewed: Yes Code Status: Attempt Resuscitation ASA classification: 2-Mild systemic disease Is this case an emergency?: No
[2018-11-10] MEDS ORDERED: ceFAZolin 2 GM/50 ML 2 GM/50 ML BAG IV ONE (09:48)
[2018-11-10] MEDS ORDERED: HYDROmorphone 1 MG/ML CARPUJECT IVP ONE (12:00)
[2018-11-10] MEDS ORDERED: MIDAZOLAM 2 MG/2 ML VIAL IVP ONE (12:00)
[2018-11-10] MEDS ORDERED: DEXAMETHASONE 4 MG/ML VIAL IVP ONE (12:00)
[2018-11-10] MEDS ORDERED: ROCURONIUM 50 MG/5 ML VIAL IVP ONE (12:00)
[2018-11-10] MEDS ORDERED: fentaNYL 250 MCG/5 ML VIAL IVP ONE (12:00)
[2018-11-10] MEDS ORDERED: ePHEDrine 50 MG/ML VIAL IVP ONE (12:00)
[2018-11-10] MEDS ORDERED: LIDOCAINE-MPF 2% 5 ML VIAL IM ONE (12:00)
[2018-11-10] MEDS ORDERED: NEOSTIGMINE 1 MG/1 ML 10 ML MDV IVP ONE (12:00)
[2018-11-10] MEDS ORDERED: SUCCINYLCHOLINE 200 MG/10 ML VIAL IVP ONE (12:00)
[2018-11-10] MEDS ORDERED: PROPOFOL 200 MG/20 ML VIAL IVP ONE (12:00)
[2018-11-10] MEDS ORDERED: GLYCOPYRROLATE 1 MG/5 ML VIAL IVP ONE (12:00)
[2018-11-10] MEDS ORDERED: KETOROLAC 30 MG/ML VIAL IVP ONE (12:00)
[2018-11-10] MEDS ORDERED: ONDANSETRON 4 MG/2 ML VIAL IVP ONE (12:00)
[2018-11-10] MEDS ORDERED: ONDANSETRON 4 MG/2 ML VIAL IVP PRN (13:40)
[2018-11-10] MEDS ORDERED: ACETAMINOPHEN 325 MG TABLET PO PRN (13:40)
[2018-11-10] MEDS ORDERED: ACETAMINOPHEN 1,000 MG/100 ML 100 ML IV ONE (14:05)
[2018-11-10] MEDS: fentaNYL 100 MCG/2 ML VIAL ONE ×2 (14:06→14:15)
--- NOTE | 2018-11-10 16:09 | OPERATIVE REPORT ---
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 PROCEDURE PERFORMED: Right total mastectomy with removal of submuscular implant. ANESTHESIA: General endotracheal by Dr. Rolando Butts CRNA. SURGEON: Lamont Elizabeth MD ESTIMATED BLOOD LOSS: 250 mL. COMPLICATIONS: None. DRAINS: A #10 round Humberto-Garcia drain. FINDINGS: The right breast was resected in continuity with the submuscular implant, which provided t he deep margin of the resection. Margin map was used to maintain orientation for the pathologic eval uation. The majority of the pectoralis muscle was preserved. INDICATIONS FOR PROCEDURE: Patient is a 73-year-old woman with a recent diagnosis of multifocal mult icentric mixed ductal and lobular invasive carcinoma of the right breast. She initially presented wi th 2 lesions on imaging studies involving the upper outer and upper inner quadrants. She has a known remote placement of a submuscular augmentation mammoplasty implant. She insisted on attempt at more st conservation therapy, and so, she initially underwent right breast lumpectomy x2, along with a sen tinel lymph node dissection. Results of that surgery confirmed a multifocal multicentric mixed ducta l and lobular lesion with positive margins due to multiple satellite lesions at both lumpectomy sites and negative sentinel lymph nodes. Additional findings included invasion of the capsule of the more st implant by malignancy in at least 1 location. She agreed, at this point, to undergo total mastect thoams with removal of the implant. TECHNIQUE: After informed consent, patient was taken to the operating room, where she was placed und er general endotracheal anesthesia. Her right breast, anterior chest wall, and axilla were prepared with ChloraPrep solution and draped in the usual sterile fashion. An elliptical incision was made incorporating the nipple areolar complex as well as the 2 prior lumpe ctomy surgery incision sites. Hemostasis achieved with electrocautery and 2-0 Vicryl ties. Leonardo cl amps were used and skin flaps were developed cephalad to the clavicle and caudal to the anterior ches t wall, medial to the left sternal border and laterally to the mid axillary line. A dissection plane was then identified and developed immediately deep to the implant, beginning medially and working la terally, preserving as much pectoral muscle as possible. The implant was resected en bloc with the o verlying breast tissue. Margin map was used to identify margins, and the tissue was sent for patholo gic evaluation. After hemostasis was assured, the wound was irrigated initially with sterile water, then with sterile saline, following which, a #10 flat Humberto-Garcia drain was placed via stab wound below the inferior flap, placed below the lower flap to lie along the anterior chest wall. Skin flaps were then reappr oximated with skin daniel. The drain was secured in place with a 2-0 nylon suture connected to bulb suction. Xeroform gauze, followed by dry sterile gauze, followed by Tegaderm was applied. Anesthes ia was terminated and patient transferred to the recovery room in satisfactory condition. Sponge and needle counts were correct x2, and a single #10 Humberto-Garcia drain was used. cc: Felix Mclean MD TD: 11/10/2018 14:10
[2018-11-10] MEDS: oxyCODONE 5 MG TABLET PO PRN ×2 (16:28→23:43)
[2018-11-10] MEDS: IBUPROFEN 600 MG TABLET PO PRN (18:52)
[2018-11-10] MEDS: OXYBUTYNIN 5MG TABLET PO SCH (21:19)
[2018-11-11] MEDS: IBUPROFEN 600 MG TABLET PO PRN (05:52)
[2018-11-11 06:21] VITALS: BP 150/92
--- NOTE | 2018-11-11 07:17 | PROVIDER PROGRESS NOTE ---
Subjective - General Procedure Date: 11/10/18 Post Op Days: 1 Procedure Performed: right total mastectomy with removal of implant - Review of Systems Wound/Incisions: positive: Dressing dry and intact Drain Type: j/p Drain Output Description: sanguinous Approximate mls Output: 100/8 hours General: positive: No symptoms HEENT: positive: No symptoms Pulmonary: positive: No symptoms Cardiovascular: positive: No symptoms Gastrointestinal: positive: No symptoms Genitourinary: positive: No symptoms Musculoskeletal: positive: No symptoms Skin: positive: No symptoms Psychiatric: positive: No symptoms Objective - Patient Data Reviewed Vital Signs: Yes Vital Signs: Vital Signs x48h Temp Pulse Resp BP Pulse Ox 11/11/18 05:30 36.9 C 91 16 150/92 H 96 11/11/18 00:16 36.9 C 94 16 96 Weight: Weight 11/09/18 11/10/18 11/11/18 23:59 23:59 23:59 Weight (kg) 97.7 kg Intake & Output: Intake and Output Totals x24h 11/09/18 11/10/18 11/11/18 23:59 23:59 23:59 Intake Total 1550 Output Total 655 100 Balance 895 -100 - Current Medications Current Medications: Current Medications Generic Name Dose Route Start Last Admin Trade Name Freq PRN Reason Stop Dose Admin Ibuprofen 600 mg 11/10/18 13:40 11/11/18 05:52 Motrin PO 600 mg Q6HR PRN Administration PAIN Oxybutynin Chloride 5 mg 11/10/18 21:00 11/10/18 21:19 Ditropan PO 5 mg BID TERRI Administration Oxycodone HCl 5 mg 11/10/18 13:40 11/10/18 23:43 Roxicodone PO 5 mg Q4HR PRN Administration PAIN - Physical Exam Wound/Incisions: positive: Dressing dry and intact, Drainage (expected sanguinous drainage from J/P) General Appearance: positive: No acute distress, Alert Eyes Bilateral: positive: Normal inspection ENT: positive: ENT inspection nml Neck: positive: Nml inspection Skin: positive: Other (chest wall dressing dry/intact) Extremities: positive: Non-tender, No pedal edema. negative: Calf tenderness Neurologic/Psychiatric: positive: Oriented x3 ABX Reporting Has patient been on IV antibiotics over the past 48 hours?: No Impression/Plan - Problem List Problem List: Satisfactory postop course PO Day 1 s/p right total mastectomy with removal of implant for invasive ductal/lobular carcinoma, multifocal and multicentric. Plan: home today; J/P care; usual precautions; RTO 2 days for dressing change.
[2018-11-11] MEDS: OXYBUTYNIN 5MG TABLET PO SCH (08:22)
== END 2018-11-11 09:24 | disposition home or self-care (01) ==
LOC: SDS 09:03 → MS2 15:07 → SDS 11-11 09:24
PROVIDERS: ATTEND Internal Medicine Gastroenterology
PROC: 0HBT0ZZ Excision of Right Breast, Open Approach (ICD-10-PCS; principal; 2018-11-10 10:30)
DX: C50.411 Malignant neoplasm of upper-outer quadrant of right female breast (principal); C50.211 Malignant neoplasm of upper-inner quadrant of right female breast; Z17.0 Estrogen receptor positive status [ER+]; Z98.82 Breast implant status; R03.0 Elevated blood-pressure reading, without diagnosis of hypertension; E66.9 Obesity, unspecified; Z68.39 Body mass index [BMI] 39.0-39.9, adult; F41.9 Anxiety disorder, unspecified; Z87.891 Personal history of nicotine dependence
CPT/HCPCS: 19303; A9270; J0131; J0330; J1170; J3010; J7120

== ENCOUNTER 2018-12-09 10:58 | Outpatient (CLI) | payer MEDICARE, OTHER ==
--- NOTE | 2018-12-10 08:32 | DEXA Report ---
Reason: POSTMENOPAUSAL Procedure Date: 12/09/2018 Accession Number: [id number] / [id number] Procedure: DEX - Dexa Spine and/or Hip CPT Code: FULL RESULT: EXAM: Dexa Spine and/or Hip DATE: 12/09/2018 11:18 AM CLINICAL HISTORY: POSTMENOPAUSAL TECHNIQUE: Dual energy x-ray absorptiometry (DXA) was performed on a [id number] System. Regions measured are the AP Spine, femoral neck, and if needed forearm. COMPARISON: None. In accordance with the International Society for Clinical Densitometry (ISCD) guidelines, data from previous exams may be reanalyzed using current recommendations and techniques. This is done to allow a more accurate basis for comparison with the current study. FINDINGS: The data for the lumbar spine is as follows: BMD (g/cm/cm) T-SCORE Z-SCORE REGION L1 1.274 1.2 1.9 L2 1.188 -0.1 0.6 L3 1.252 0.4 1.1 L4 1.335 1.1 1.8 TOTAL 1.267 0.7 1.4 NOTE: All evaluable vertebrae are used for classification The data for the hip is as follows: BMD (g/cm/cm) T-SCORE Z-SCORE REGION Neck 0.801 -1.7 -0.5 TOTAL 0.876 -1.0 -0.1 NOTE: The femoral neck or total proximal femur, whichever is lowest, is used for classification. IMPRESSION: THE WHO CLASSIFICATION BASED ON THE INTERNATIONAL REFERENCE STANDARD IS OSTEOPENIA. THE FRACTURE RISK IS INCREASED. RECOMMENDATION: Patients with diagnosis of osteoporosis or osteopenia should have regular bone mineral density assessment. For those eligible for Medicare, routine testing is allowed once every 2 years. Testing frequency can be increased for patients who have rapidly progressing disease or for those who are receiving medical therapy to restore bone mass. COMMENT: World Health Organization (WHO) definitions for osteoporosis and osteopenia: NORMAL BMD: T-score at -1.0 or higher, fracture risk is low OSTEOPENIA BMD: T-score between -1.0 and -2.5, fracture risk is increased. OSTEOPOROSIS BMD: T-score at -2.5 or lower, fracture risk is high. National Osteoporosis Foundation recommends: 1. Obtain adequate dietary calcium (at least 1200 mg per day) and vitamin D (400-800 international units per day). 2. Participate, as appropriate, in regular weightbearing and muscle-strengthening exercise. 3. Avoid tobacco use and reduce alcohol and caffeine intake. 4. For more detailed information see the website at www.NOF.org.
== END 2018-12-09 10:59 | disposition home or self-care (01) ==
LOC: DI 10:58
PROVIDERS: ATTEND Internal Medicine Hematology & Oncology
DX: M85.88 Other specified disorders of bone density and structure, other site (principal); C50.911 Malignant neoplasm of unspecified site of right female breast; Z78.0 Asymptomatic menopausal state
CPT/HCPCS: 77080

== ENCOUNTER 2020-02-04 07:21 | Outpatient (CLI) | payer MEDICARE, OTHER ==
[2020-02-04 12:21] LABS: BASOPHILS % (AUTO) 0.4 %; EOSINOPHILS # (AUTO) 0.4 10^3/uL (0.0-0.7); EOSINOPHILS % (AUTO) 5.7 %; HGB - HEMOGLOBIN 13.1 g/dL (12.0-16.0); LYMPHOCYTES # (AUTO) 1.7 10^3/uL (1.5-3.5); LYMPHOCYTES % (AUTO) 25.5 %; MEAN CORPUSCULAR HEMOGLOBIN 31.1 pg (27.0-31.0); MEAN CORPUSCULAR HGB CONC 31.3 g/dL (32.0-36.0); MEAN CORPUSCULAR VOLUME 99.3 fL (81.0-99.0); MEAN PLATELET VOLUME 10.8 fL (7.9-10.8); MONOCYTES # (AUTO) 0.8 10^3/uL (0.0-1.0); NEUTROPHILS # (AUTO) 3.9 10^3/uL (1.5-6.6); NEUTROPHILS % (AUTO) 57.3 %; PLT - PLATELET COUNT 235 10^3/uL (130-450); RED BLOOD COUNT 4.21 10^6/uL (4.20-5.40); RED CELL DISTRIBUTION WIDTH 13.8 % (12.0-15.0); WHITE BLOOD COUNT 6.8 x10^3/uL (4.8-10.8)
[2020-02-04 13:31] LABS: ALBUMIN 4.1 g/dL (3.2-5.5); ALBUMIN/GLOBULIN RATIO 1.3 (1.0-2.2); ALKALINE PHOSPHATASE 83 IU/L (42-121); ALT ALANINE AMINOTRANSFERASE 25 IU/L (10-60); AST ASPARTATE AMINOTRANSFERASE 28 IU/L (10-42); BILIRUBIN,TOTAL 0.6 mg/dL (0.2-1.0); BUN - BLOOD UREA NITROGEN 15 mg/dL (6-20); CALCIUM 9.7 mg/dL (8.5-10.3); CARBON DIOXIDE - CO2 30 mmol/L (21-32); CHLORIDE 100 mmol/L (101-111); CHOL/HDL RATIO 2.2 (<4.4); CHOLESTEROL 210 mg/dL; CREATININE 0.9 mg/dL (0.4-1.0); GLUCOSE 97 mg/dL (70-100); HDL CHOLESTEROL 97 mg/dL; LDL CHOLESTEROL,CALCULATED 99 mg/dL; SODIUM 141 mmol/L (135-145); TOTAL PROTEIN 7.2 g/dL (6.7-8.2); VLDL CHOLESTEROL 14 mg/dL
== END 2020-02-04 23:59 | disposition home or self-care (01) ==
LOC: LAB.WCP 07:21
PROVIDERS: ATTEND Family Medicine
DX: E78.5 Hyperlipidemia, unspecified (principal); R03.0 Elevated blood-pressure reading, without diagnosis of hypertension; E66.9 Obesity, unspecified; G47.62 Sleep related leg cramps; C50.919 Malignant neoplasm of unspecified site of unspecified female breast; F41.9 Anxiety disorder, unspecified
CPT/HCPCS: 36415; 80053; 80061; 83721; 84443; 85025

== ENCOUNTER 2020-02-18 11:05 | Outpatient (CLI) | payer MEDICARE, OTHER ==
--- NOTE | 2020-02-19 07:27 | Mammography Report ---
UNILATERAL LEFT DIGITAL SCREENING MAMMOGRAM 3D/2D: 02/18/2020 CLINICAL: Routine screening. Personal history of right breast cancer. Comparison is made to exams dated: 10/27/2018 mammogram, 09/16/2018 mammogram, 09/15/2018 mammogram, mammogram, and 05/28/2014 mammogram - [facility]. There are scattered fibr oglandular elements in left breast. Right breast implant is intact. No significant masses, calcifications, or other findings are seen in the breast. There has been no significant interval change. IMPRESSION: There is no mammographic evidence of malignancy. A 1 year screening mammogram is recommended. This exam was interpreted at Station ID: [id number]. NOTE: For mammograms, a report in lay terms will be sent to the patient. Approximately 15% of breast malignancies will not be visualized mammographically. In the management of a palpable breast mass, a negative mammogram must not discourage biopsy of a clinically suspicious lesion. Electronically Signed By: Consuelo blake/liliana:02/18/2020 12:06:14 ACR BI-RADS Category 2: Benign Finding(s) 3342F PARENCHYMAL PATTERN: (A) - The breast(s) demonstrate(s) scattered fibroglandular densities. BI-RADS CATEGORY: (2) - 2 RECOMMENDATION: (ANNUAL) - Recommend routine annual screening mammography. [id number] 1 year screening LATERALITY: (B)
== END 2020-02-18 11:06 | disposition home or self-care (01) ==
LOC: DI 11:05
PROVIDERS: ATTEND Surgery
DX: Z12.31 Encounter for screening mammogram for malignant neoplasm of breast (principal); C50.919 Malignant neoplasm of unspecified site of unspecified female breast
CPT/HCPCS: 77063

== ENCOUNTER 2020-03-02 11:19 | Outpatient (CLI) | payer MEDICARE, OTHER ==
[2020-03-02] MEDS ORDERED: IOVERSOL 320 50 ML VIAL ONE (11:36)
[2020-03-02] MEDS ORDERED: IOVERSOL 320 100 ML VIAL IVP ONE ×2 (11:36→13:07)
[2020-03-02] MEDS ORDERED: IOVERSOL 320 50 ML VIAL PO ONE (13:07)
--- NOTE | 2020-03-02 13:57 | CT Report ---
PROCEDURE: Abdomen/Pelvis W INDICATIONS: ABD PAIN CONTRAST: IV CONTRAST: Optiray 320 ml: 100 PO CONTRAST: Optiray 320 ml50 TECHNIQUE: After the administration of oral and intravenous contrast, 5 mm thick sections acquired from the diap hragms to the symphysis. 5 mm thick coronal and sagittal reformats were acquired. For radiation dos e reduction, the following was used: automated exposure control, adjustment of mA and/or kV accordin g to patient size. COMPARISON: None. FINDINGS: Image quality: Excellent. ABDOMEN: Lung bases: Lung bases are clear. Heart size is normal. There is a very large hiatal hernia with m uch of the stomach anatomically being malrotated into the posterior mediastinum area, behind the hear t. The morphology of the stomach is suggestive of a gastric inversion with the greater curvature stom ach directed cephalad. Torsion/edema and incarceration is not identified. Note is made of a periphera lly calcified breast implant on the left. Oral contrast extends into the esophagus from the gastric l umen. Solid organs: Liver and spleen are normal in size and enhancement. Gallbladder appears normal Bili davion system is non dilated. Pancreas enhances normally. No adrenal nodules. Kidneys demonstrate nor mal size and enhancement, without hydronephrosis. Peritoneum and bowel: Bowel loops demonstrate normal wall thickness and caliber. No free fluid or a ir. Nodes and vessels: No retroperitoneal or mesenteric adenopathy by size criteria. Aorta and inferior vena cava are normal in size. Miscellaneous: There is a small periumbilical ventral hernia showing no evidence of incarceration or strangulation of the bowel segment involved.. PELVIS: Genitourinary: Bladder wall thickness is normal. Miscellaneous: No inguinal hernias or adenopathy. Bones: No suspicious bony lesions. No vertebral body compression fractures. IMPRESSION: A very large hiatal hernia is present in this patient allowing much of the gastric toro ns to extend into the posterior chest, with a morphology suggestive of gastric inversion with the gre ater curvature of the stomach directed cephalad. No underlying infection or neoplasm is found. Note is made of reflux of a portion of the oral contras t from the stomach into the distal esophagus. Small periumbilical ventral hernia without evidence of incarceration or strangulation. Reviewed by: Baldo Chawla MD on 03/02/2020 1:56 PM PDT Approved by: Baldo Chawla MD on 03/02/2020 1:56 PM PDT Station ID: [id number]
== END 2020-03-02 11:20 | disposition home or self-care (01) ==
LOC: DI 11:19
PROVIDERS: ATTEND Family Medicine
DX: K44.9 Diaphragmatic hernia without obstruction or gangrene (principal); K43.9 Ventral hernia without obstruction or gangrene
CPT/HCPCS: 74177; Q9967

== ENCOUNTER 2020-05-24 07:18 | Emergency (ER) | payer MEDICARE, OTHER ==
--- NOTE | 2020-05-24 07:28 | ED Physician Documentation ---
PD HPI ABD PAIN - Stated complaint Stated Complaint: ABD PX, NAUSEA - History obtained from History obtained from: Patient - History of Present Illness Timing - onset: Today (2 hours ago) Timing - duration: Hours (2) Timing - details: Abrupt onset, Still present Quality: Cramping, Aching, Pain Location: All over / everywhere, Periumbilical (Most of the pain is periumbilical but she does have a cramping and aching feeling diffusely. Nausea but no vomiting. She does feel some mild distention) Radiation: No: Chest, Lower back Associated symptoms: Nausea. No: Fever, Vomiting, Diarrhea, Constipation Similar symptoms before: Diagnosis (She has a known prior umbilical hernia that had not been bothering her. She had seen Dr. Krishnan in discussion about it and were planning surgery at some point. She was to be evaluated for hiatal hernia as well prior to it. She had an incarceration episode 3 days ago while out of state.) Recently seen: Emergency Dept (3 days ago and had improvement with reduction of incarcerated hernia.) Review of Systems Constitutional: denies: Fever, Chills Nose: denies: Rhinorrhea / runny nose, Congestion Throat: denies: Sore throat Cardiac: denies: Chest pain / pressure Respiratory: denies: Dyspnea, Cough GI: reports: Abdominal Pain, Nausea. denies: Vomiting, Constipation, Diarrhea, Bloody / black stool : denies: Dysuria Skin: denies: Rash, Lesions Neurologic: denies: Near syncope, Altered mental status, Headache PD PAST MEDICAL HISTORY - Past Medical History Cardiovascular: High cholesterol Respiratory: None Endocrine/Autoimmune: None GI: Hiatal hernia : None HEENT: Chronic vision loss Psych: Anxiety, Claustrophobia Musculoskeletal: Osteoarthritis, Chronic back pain Derm: Other - Past Surgical History General: Colonoscopy, EGD HEENT: Tonsil/Adenoidectomy - Present Medications Home Medications: Ambulatory Orders Medication Instructions Recorded Confirmed Simvastatin 20 mg PO QPM 09/07/14 06/30/19 Oxybutynin Chloride [Ditropan Xl] 15 mg PO DAILY 10/22/18 06/30/19 Anastrozole 1 mg PO DAILY 02/17/19 06/30/19 Calcium Carbonate [Calcium] 1,000 mg PO DAILY 02/17/19 06/30/19 Cholecalciferol (Vitamin D3) 1 cap PO DAILY 02/17/19 06/30/19 [Vitamin D3] - Allergies Allergies/Adverse Reactions: Allergies Allergy/AdvReac Type Severity Reaction Status Date / Time pseudoephedrine HCl * Allergy Rash Verified 05/24/20 07:34 [From Actifed] triprolidine HCl * Allergy Rash Verified 05/24/20 07:34 [From Actifed] - Social History Smoking Status: Never smoker PD ED PE NORMAL - Vitals Vital signs reviewed: Yes - General General: Alert and oriented X 3, Well developed/nourished, Other (appears in pain mid abdomen) - Neck Neck: Supple, no meningeal sign, No adenopathy - Cardiac Cardiac: RRR, No murmur - Respiratory Respiratory: Clear bilaterally - Abdomen Abdomen: Soft, Non distended, Other (Bowel sounds are present and somewhat hyperactive diffusely. There is a firm rounded tenderness in the umbilical area which is deeper feeling (somewhat due to her obesity). There is no redness or warmth of the skin. It is markedly tender in the area.) - Rectal Rectal: Deferred - Back Back: No CVA TTP - Derm Derm: Normal color, Warm and dry - Extremities Extremities: Normal ROM s pain, No edema, No calf tenderness / cord - Neuro Neuro: Alert and oriented X 3, No motor deficit, Normal speech Results - Vitals Vitals: Vital Signs - 24 hr 05/24/20 05/24/20 07:27 09:34 Temperature 36.9 C 36.9 C Heart Rate 86 55 L Respiratory 20 18 Rate Blood Pressure 157/83 H 179/70 H O2 Saturation 99 100 Oxygen O2 Source Room air - Labs Labs: Laboratory Tests 05/24/20 05/24/20 07:50 07:50 WBC 6.6 RBC 4.88 Hgb 15.1 Hct 46.4 MCV 95.1 MCH 30.9 MCHC 32.5 RDW 12.8 Plt Count 264 MPV 10.1 Neut # (Auto) 4.3 Lymph # (Auto) 1.4 L Charlton # (Auto) 0.6 Eos # (Auto) 0.2 Baso # (Auto) 0.0 Absolute Nucleated RBC 0.00 Nucleated RBC % 0.0 Sodium 138 Potassium 3.5 Chloride 101 Carbon Dioxide 25 Anion Gap 12.0 BUN 11 Creatinine 0.8 Estimated GFR (MDRD) 70 L Glucose 112 H Calcium 9.8 Total Bilirubin 0.7 AST 26 ALT 21 Alkaline Phosphatase 80 Total Protein 8.0 Albumin 4.3 Globulin 3.7 Albumin/Globulin Ratio 1.2 Lipase 40 PD MEDICAL DECISION MAKING - ED course Complexity details: reviewed old records (The CT scan lab results and discharge instructions from the ER in [place] at which she was seen 3 days ago), re- evaluated patient (After IV pain medications, I was able to provide steady gentle pressure but firm to the hernia and I could feel it slowly decompressed and then it subsequently reduced and the patient felt much better. Recheck later was marked improvement in her pain and just a mild aching at this time.), considered differential, d/w patient, d/w window covering sales consultant (Dr. Duval, Who had evaluated the patient about the hernia in the past and will contact the patient through her office and will aim for surgery on the patient hopefully this week) Departure - Departure Disposition: 01 Home, Self Care Clinical Impression: Recurrent umbilical hernia with incarceration Condition: Stable Record reviewed to determine appropriate education?: Yes Instructions: ED Hernia Inguinal Follow-Up: Jhonatan Duval MD [Provider Admit Priv/Credential] - Felix Mclean MD [Primary Care Provider] - Comments: Stay well hydrated. No heavy lifting. Dr. Duval suggests 1 or 2 teaspoons of mineral oil daily to provide soft stool and less pressure in the abdomen. Tylenol if needed for pains. Dr. Duval's office will contact you later today about having the surgical repair done. I did talk with Dr. Duval by phone this morning and she agrees you need to have this repaired surgically in very near future. Discharge Date/Time: 05/24/20 09:51
[2020-05-24 08:00] LABS: BASOPHILS % (AUTO) 0.5 %; EOSINOPHILS # (AUTO) 0.2 10^3/uL (0.0-0.7); EOSINOPHILS % (AUTO) 3.2 %; HGB - HEMOGLOBIN 15.1 g/dL (12.0-16.0); LYMPHOCYTES # (AUTO) 1.4 10^3/uL (1.5-3.5); LYMPHOCYTES % (AUTO) 21.8 %; MEAN CORPUSCULAR HEMOGLOBIN 30.9 pg (27.0-31.0); MEAN CORPUSCULAR HGB CONC 32.5 g/dL (32.0-36.0); MEAN CORPUSCULAR VOLUME 95.1 fL (81.0-99.0); MEAN PLATELET VOLUME 10.1 fL (7.9-10.8); MONOCYTES # (AUTO) 0.6 10^3/uL (0.0-1.0); MONOCYTES % (AUTO) 8.3 %; NEUTROPHILS # (AUTO) 4.3 10^3/uL (1.5-6.6); NEUTROPHILS % (AUTO) 65.7 %; PLT - PLATELET COUNT 264 10^3/uL (130-450); RED BLOOD COUNT 4.88 10^6/uL (4.20-5.40); RED CELL DISTRIBUTION WIDTH 12.8 % (12.0-15.0); WHITE BLOOD COUNT 6.6 x10^3/uL (4.8-10.8)
[2020-05-24] MEDS ORDERED: HYDROmorphone 1 MG/ML CARPUJECT IVP STA (08:00)
[2020-05-24] MEDS ORDERED: ONDANSETRON 4 MG/2 ML VIAL IVP STA (08:00)
[2020-05-24] MEDS ORDERED: SODIUM CHLORIDE 0.9% 1,000 ML IV STA (08:00)
[2020-05-24 08:13] LABS: ALBUMIN 4.3 g/dL (3.2-5.5); ALBUMIN/GLOBULIN RATIO 1.2 (1.0-2.2); BILIRUBIN,TOTAL 0.7 mg/dL (0.2-1.0); CALCIUM 9.8 mg/dL (8.5-10.3); CREATININE 0.8 mg/dL (0.4-1.0)
[2020-05-24 09:47] VITALS: BP 179/70
== END 2020-05-24 09:51 | disposition home or self-care (01) ==
LOC: ED 07:18
DX: K42.0 Umbilical hernia with obstruction, without gangrene (principal)
CPT/HCPCS: 36415; 80053; 83690; 85025; 96361; 96374; 99283; 99284; J1170

== ENCOUNTER 2020-05-27 13:55 | Outpatient (CLI) | payer MEDICARE, OTHER | END 2020-05-27 13:56 | disposition home or self-care (01) | LOC: COV 13:55 | PROVIDERS: ATTEND Surgery | DX: Z01.812 Encounter for preprocedural laboratory examination (principal); Z20.828 Contact with and (suspected) exposure to other viral communicable diseases; K43.9 Ventral hernia without obstruction or gangrene ==

== ENCOUNTER 2020-05-30 09:00 | Day surgery (SDC) | payer MEDICARE, OTHER ==
[~2020-05-30 09:00] MED LIST changes: +CEFAZOLIN SODIUM IN 0.9 % NACL 2 GM/100 ML BAG IV ONE; -ceFAZolin 2 GM/50 ML 2 GM/50 ML BAG IV ONE
[2020-05-30] MEDS ORDERED: fentaNYL 100 MCG/2 ML VIAL IVP ONE (09:01)
[2020-05-30] MEDS ORDERED: ONDANSETRON 4 MG/2 ML VIAL IVP ONE (09:01)
[2020-05-30] MEDS ORDERED: ACETAMINOPHEN 1,000 MG/100 ML 100 ML IV ONE (09:01)
[2020-05-30] MEDS ORDERED: GLYCOPYRROLATE 1 MG/5 ML VIAL IVP ONE (09:01)
[2020-05-30] MEDS ORDERED: ROCURONIUM 50 MG/5 ML VIAL IVP ONE (09:01)
[2020-05-30] MEDS ORDERED: DEXAMETHASONE 4 MG/ML VIAL IVP ONE (09:01)
[2020-05-30] MEDS ORDERED: LIDOCAINE-MPF 2% 5 ML VIAL IM ONE (09:01)
[2020-05-30] MEDS ORDERED: MIDAZOLAM 2 MG/2 ML VIAL IVP ONE (09:01)
[2020-05-30] MEDS ORDERED: NEOSTIGMINE 1 MG/1 ML 10 ML MDV IVP ONE (09:01)
[2020-05-30] MEDS ORDERED: PROPOFOL 200 MG/20 ML VIAL IVP ONE (09:01)
[2020-05-30] MEDS ORDERED: LACTATED RINGERS 1,000 ML IV ONE ×2 (09:11→13:21)
[2020-05-30] MEDS ORDERED: BUPIVACAINE 0.5% PF 30 ML VIAL ONE ×2 (10:26→11:21)
--- NOTE | 2020-05-30 10:44 | ANESTHESIA ---
Pre-Anesthesia VS, & Labs - Diagnosis Umbilical hernia with multiple episodes of bowel obstruction - Procedure laparoscopic ventral incisional hernia repair with possible mesh Vital Signs: Temp Pulse Resp BP Pulse Ox 36.7 C 89 12 175/79 H 96 05/30/20 09:11 05/30/20 09:11 05/30/20 09:11 05/30/20 09:11 05/30/20 09:11 Height: 5 ft 3 in Weight (kg): 100.2 kg Body Mass Index: 39.1 BMI Classification: Obese - NPO >8 hours - Is Patient ?: No Home Medications and Allergies Home Medications: Ambulatory Orders Melatonin 3 mg PO DAILY 05/30/20 Simvastatin 20 mg PO QPM 09/07/14 Oxybutynin Chloride [Ditropan Xl] 15 mg PO DAILY 10/22/18 Anastrozole 1 mg PO DAILY 02/17/19 Cholecalciferol (Vitamin D3) [Vitamin D3] 5,000 unit PO DAILY 02/17/19 Melatonin 3 mg PO DAILY 05/30/20 Allergies/Adverse Reactions: Allergies Allergy/AdvReac Type Severity Reaction Status Date / Time pseudoephedrine HCl * Allergy Rash Verified 05/24/20 07:34 [From Actifed] triprolidine HCl * Allergy Rash Verified 05/24/20 07:34 [From Actifed] Anes History & Medical History - Anesthetic History Anesthesia Complications: reports: No previous complications - Medical History Cardiovascular: reports: High cholesterol Pulmonary: reports: None Gastrointestinal: reports: Hiatal hernia Urinary: reports: None Neuro: reports: None Musculoskeletal: reports: Osteoarthritis, Chronic back pain Endocrine/Autoimmune: reports: None Blood Disorders: reports: None Skin: reports: None Smoking Status: Never smoker Psychosocial: reports: Alcohol (2 drinks per week) History of Cancer?: Yes (right breast cancer. ) - Surgical History General: Colonoscopy, EGD Eyes Ears Nose Throat (EENT): Tonsil/Adenoidectomy Gynecologic: Other Exam General: Alert, Oriented x3, Cooperative, No acute distress Dental: WNL Mouth Openin Fingerbreadth Neck Mobility: Normal Mallampati classification: III Thyromental Distance: 4-6 cm Mental/Cognitive Status: Alert/Oriented X3, Normal for patient Plan Anesthesia Type: General Consent for Procedure(s) Verified and Reviewed: Yes Code Status: Attempt Resuscitation ASA classification: 2-Mild systemic disease Is this case an emergency?: No
[2020-05-30] MEDS ORDERED: LIDOCAINE 1%-EPI 1:100000 20 ML MDV ONE (11:21)
[2020-05-30] MEDS ORDERED: ceFAZolin 1 GM VIAL ONE (11:21)
[2020-05-30] MEDS ORDERED: BUPIVACAINE 0.5% PF 30 ML VIAL INFIL ONE ×2 (11:57)
[2020-05-30] MEDS ORDERED: LIDOCAINE 1%-EPI 1:100000 20 ML MDV SUBQ ONE ×2 (11:57)
[2020-05-30] MEDS ORDERED: METOCLOPRAMIDE 10 MG/2 ML VIAL IVP PRN (12:16)
[2020-05-30] MEDS ORDERED: ONDANSETRON 4 MG/2 ML VIAL IVP PRN ×2 (12:16→13:39)
[2020-05-30] MEDS ORDERED: fentaNYL 100 MCG/2 ML VIAL IVP PRN (12:16)
[2020-05-30] MEDS ORDERED: ATROPINE ABBOJECT 1 MG/10 ML SYRINGE IVP PRN (12:16)
[2020-05-30] MEDS ORDERED: MORPHINE 2 MG/ML CARPUJECT IVP PRN (12:16)
[2020-05-30] MEDS ORDERED: ePHEDrine 50 MG/ML VIAL IVP PRN (12:16)
[2020-05-30] MEDS ORDERED: NALOXONE 0.4 MG/ML VIAL IVP PRN (12:16)
[2020-05-30] MEDS ORDERED: LACTATED RINGERS 1,000 ML IV SCH (13:00)
[2020-05-30] MEDS ORDERED: SUGAMMADEX 200 MG/2 ML VIAL IVP ONE (13:13)
[2020-05-30] MEDS: HYDROmorphone 0.5 MG/0.5 ML SYRINGE IVP PRN ×4 (13:27→13:54)
[2020-05-30] MEDS ORDERED: HYDROmorphone 1 MG/ML CARPUJECT ONE ×2 (13:34→13:52)
[2020-05-30] MEDS ORDERED: SODIUM CHLORIDE FLUSH 0.9% 10 ML SYRINGE IVP PRN (13:39)
[2020-05-30] MEDS ORDERED: ONDANSETRON 4 MG/2 ML VIAL ONE (13:40)
[2020-05-30] MEDS ORDERED: KETOROLAC 30 MG/ML VIAL IVP ONE (13:51)
[2020-05-30] MEDS ORDERED: KETOROLAC 15 MG/ML VIAL IVP SCH (14:00)
[2020-05-30] MEDS: SODIUM CHLORIDE 0.9% 1,000 ML IV SCH (15:25)
[2020-05-30] MEDS: SODIUM CHLORIDE FLUSH 0.9% 10 ML SYRINGE IVP SCH ×2 (15:27→23:50)
--- NOTE | 2020-05-30 15:47 | ANESTHESIA POST OP EVALUATION ---
Anesthesia Post Eval - Post Anesthesia Eval Vitals: Last Vital Signs Temp 37.1 C 05/30/20 14:33 Pulse 97 05/30/20 14:33 Resp 18 05/30/20 14:33 BP 145/68 H 05/30/20 14:33 Pulse Ox 94 05/30/20 14:33 CV Function Including HR & BP: positive: Stable Pain Control: positive: Satisfactory Nausea & Vomiting: positive: Negative Mental Status: positive: Baseline Respiratory Status: Airway Patent Hydration Status: Satisfactory Anesthesia Complications: positive: None
[2020-05-30] MEDS: ACETAMINOPHEN 1,000 MG/100 ML 100 ML IV SCH ×2 (17:02→23:49)
[2020-05-30] MEDS: ceFAZolin 2 GM in SODIUM CHLORIDE 0.9% 100ML 100 ML IV SCH (17:05)
[2020-05-30] MEDS: oxyCODONE 5 MG TABLET PO PRN ×2 (18:10→21:18)
[2020-05-30] MEDS: KETOROLAC 15 MG/ML VIAL IVP SCH (19:55)
[2020-05-30] MEDS ORDERED: ATORVASTATIN 10 MG TABLET PO SCH (21:00)
[2020-05-30] MEDS: OXYBUTYNIN 5MG TABLET PO SCH (21:17)
[2020-05-31] MEDS: KETOROLAC 15 MG/ML VIAL IVP SCH ×3 (02:54→14:32)
[2020-05-31] MEDS: ceFAZolin 2 GM in SODIUM CHLORIDE 0.9% 100ML 100 ML IV SCH (02:57)
[2020-05-31] MEDS: ACETAMINOPHEN 1,000 MG/100 ML 100 ML IV SCH ×2 (06:41→14:31)
[2020-05-31] MEDS ORDERED: PANTOPRAZOLE 40 MG TABLET PO SCH (07:00)
[2020-05-31] MEDS ORDERED: ENOXAPARIN 40 MG/0.4 ML SYRINGE SUBQ SCH (09:00)
[2020-05-31] MEDS ORDERED: ANASTROZOLE 1 MG TABLET PO SCH (09:00)
[2020-05-31] MEDS ORDERED: NON FORMULARY MED (Melatonin [Melatonin] 3 MG) PO SCH (09:00)
[2020-05-31 09:34] LABS: HGB - HEMOGLOBIN 12.8 g/dL (12.0-16.0); MEAN CORPUSCULAR HEMOGLOBIN 31.9 pg (27.0-31.0); MEAN CORPUSCULAR HGB CONC 32.7 g/dL (32.0-36.0); MEAN CORPUSCULAR VOLUME 97.8 fL (81.0-99.0); RED BLOOD COUNT 4.01 10^6/uL (4.20-5.40); RED CELL DISTRIBUTION WIDTH 12.8 % (12.0-15.0); WHITE BLOOD COUNT 13.4 x10^3/uL (4.8-10.8)
[2020-05-31 09:52] LABS: CALCIUM 9.2 mg/dL (8.5-10.3)
[2020-05-31] MEDS: OXYBUTYNIN 5MG TABLET PO SCH ×2 (10:17→10:19)
[2020-05-31] MEDS: SODIUM CHLORIDE FLUSH 0.9% 10 ML SYRINGE IVP SCH (10:20)
[2020-05-31] MEDS: SODIUM CHLORIDE 0.9% 1,000 ML IV SCH (10:21)
[2020-05-31] MEDS ORDERED: ACETAMINOPHEN 500 MG TABLET PO PRN (13:00)
[2020-05-31] MEDS ORDERED: ACETAMINOPHEN 325 MG TABLET PO PRN (13:31)
[2020-05-31] MEDS ORDERED: ONDANSETRON 4 MG/2 ML VIAL IVP PRN (13:31)
[2020-05-31] MEDS ORDERED: oxyCODONE 5 MG TABLET PO PRN (13:31)
[2020-05-31] MEDS ORDERED: IBUPROFEN 600 MG TABLET PO PRN (13:31)
--- NOTE | 2020-05-31 13:38 | PROVIDER PROGRESS NOTE ---
Subjective - General Procedure Date: 05/30/20 Post Op Days: 1 Procedure Performed: Laparoscopic Umbilical hernia repair - Review of Systems Wound/Incisions: positive: Healing well General: positive: No symptoms HEENT: positive: No symptoms Pulmonary: positive: No symptoms Cardiovascular: positive: No symptoms Gastrointestinal: positive: Other (Tender at incision sites) Genitourinary: positive: Retention (Retention last evening so had a catheter over night. Removed this AM and patient has not had the urge to void) Objective - Patient Data Vital Signs: Vital Signs x48h Temp Pulse Pulse Resp BP Pulse Ox 05/31/20 08:17 37 C 65 18 139/59 H 93 05/31/20 06:43 36.5 C 74 17 139/78 H 95 Weight: Weight 05/29/20 05/30/20 05/31/20 23:59 23:59 23:59 Weight (kg) 100.2 kg Intake & Output: Intake and Output Totals x24h 05/29/20 05/30/20 05/31/20 23:59 23:59 23:59 Intake Total 1005.833 540 Output Total 1415 375 Balance -409.167 165 - Lab Results Lab Results: 05/31/20 09:26 05/31/20 09:26 Other Lab Results: Lab Results x24hrs 05/31/20 05/31/20 Range/Units 09:26 09:26 WBC 13.4 H (4.8-10.8) x10^3/uL RBC 4.01 L (4.20-5.40) 10^6/uL Hgb 12.8 (12.0-16.0) g/dL Hct 39.2 (37.0-47.0) % MCV 97.8 (81.0-99.0) fL MCH 31.9 H (27.0-31.0) pg MCHC 32.7 (32.0-36.0) g/dL RDW 12.8 (12.0-15.0) % Plt Count 236 (130-450) 10^3/uL MPV 10.0 (7.9-10.8) fL Sodium 136 (135-145) mmol/L Potassium 3.8 (3.5-5.0) mmol/L Chloride 100 L (101-111) mmol/L Carbon Dioxide 27 (21-32) mmol/L Anion Gap 9.0 (6-13) BUN 13 (6-20) mg/dL Creatinine 1.0 (0.4-1.0) mg/dL Estimated GFR (MDRD) 54 L (>89) Glucose 117 H (70-100) mg/dL Calcium 9.2 (8.5-10.3) mg/dL - Current Medications Current Medications: Current Medications Generic Name Dose Route Start Last Admin Trade Name Freq PRN Reason Stop Dose Admin Anastrozole 1 mg 05/31/20 09:00 05/31/20 10:29 Anastrozole PO 1 mg DAILY TERRI Administration Atorvastatin Calcium 10 mg 05/30/20 21:00 05/30/20 21:18 Lipitor PO 10 mg QPM TERRI Administration Enoxaparin Sodium 40 mg 05/31/20 09:00 05/31/20 10:19 Lovenox SUBQ Not Given DAILY TERRI Sodium Chloride 1,000 mls @ 50 mls/hr 05/30/20 14:00 05/31/20 10:21 Normal Saline 0.9% IV Not Given .Q20H TERRI Ketorolac Tromethamine 15 mg 05/30/20 20:00 05/31/20 07:55 Toradol Inj (15mg) IVP 06/04/20 19:59 15 mg Q6H TERRI Administration Non-Formulary Medication 3 mg 05/31/20 09:00 05/31/20 10:20 Melatonin [Melatonin] PO Not Given DAILY TERRI Ondansetron HCl 4 mg 05/30/20 13:39 05/30/20 18:10 Zofran Inj IVP 4 mg Q6H PRN Administration Nausea / Vomiting Oxybutynin Chloride 5 mg 05/30/20 21:00 05/31/20 10:19 Ditropan PO Not Given BID TERRI Oxycodone HCl 5 mg 05/30/20 13:39 05/30/20 21:18 Roxicodone PO 5 mg Q4HR PRN Administration PAIN Pantoprazole Sodium 40 mg 05/31/20 07:00 05/31/20 06:46 Protonix PO 40 mg QDAC TERRI Administration Sodium Chloride 10 ml 05/30/20 17:00 05/31/20 10:20 Normal Saline Flush 0.9% IVP Not Given 0100,0900,1700 TERRI - Physical Exam Wound/Incisions: positive: Healing well, Other (Mild bruising) General Appearance: positive: No acute distress, Alert Eyes Bilateral: positive: Normal inspection, PERRL, EOMI ENT: positive: ENT inspection nml, Pharynx nml, No signs of dehydration Neck: positive: Nml inspection, Thyroid nml, No JVD Respiratory: positive: Chest non-tender, No respiratory distress, Breath sounds nml Cardiovascular: positive: Regular rate & rhythm Abdomen: positive: Nml bowel sounds, No distention, Tenderness Neurologic/Psychiatric: positive: Oriented x3 Impression/Plan - Problem List Problem List: Incarcerated umbilical hernia. Healing as expected POD #1. Will discharge this afternoon after voiding. Follow up with me in 2 weeks.
[2020-05-31 14:23] VITALS: BP 140/60
--- NOTE | 2020-06-05 17:26 | OPERATIVE REPORT ---
Operative Report - General Planned Procedure: Laparoscopic ventral hernia repair. Pre-Op Diagnosis: Incarcerated ventral hernia Procedure Performed: Laparoscopic ventral hernia repair Post Op Diagnosis: Same - Procedure Note Primary Surgeon: Simin Anesthesia Provider: NAGI Wagner Anesthesia Technique: General ET tube Pathology: Hernia sack to pathology in formalin Estimated Blood Loss (mL): 25 Findings: 4 cm hernia defect containing a loop of colon and preperitoneal fat Complications: None apparent - Other Other Information/Narrative: After obtaining informed consent, the patient was brought to the operating room and placed in the supine position on the operating table. Following successful induction of general endotracheal anesthesia, appropriate padding of all bony prominences and placement of appropriate monitors, the abdomen was prepped and draped in the standard surgical fashion. A Time Out was held per SCOPE protocol. All elements of the surgical safety checklist were followed before, during, and after the procedure. Following infiltration with local anesthetic to create a field block, an incision was create directly over the hernia near the umbilicus and carried through the skin and subcutaneous tissue to reveal the hernia sack and incarcerated contents. Within this large hernia sack which was entered cautiously and without any inadvertent viscus injury, we noted a knuckle of small bowel and a portion of preperitoneal fat. With great care, this tissue was teased sharply from the surrounding structures using both scalpel and Metzenbaum scissors. The bowel appeared well vascularized and fully viable. The fascia was then dissected to its respective components to allow for the ultimate primary intraperitoneal repair. This procedure was selected due the size of the hernia and the patient's body habitus. A wound protector was placed in the fascial defect and the entire small bowel evaluated through this opening. A 12 mm trocar was placed through the wound protector and the abdomen was insufflated to 15mm of Hg pressure. The camera was placed in the abdominal cavity. DIagnostic laparoscopy revealed right upper quadrant and suprapubic adhesions. These were addressed sharply with laparoscopic scissors until the internal surface of the abdominal wall was free from adhesions with an appropriate surface for mesh placement. Following infiltration with local anesthetic, 4 5mm trocars were placed peripherally. One was placed in each upper quadrant and one in each lower quadrant under direct vision. A [employer] Ventralight ST 15 cm circlular implant was chosen for repair. It was rolled and placed through the centrally placed 12 mm port. The peripheral ports were utilized to straighten and flatten the mesh up against the abdominal wall. The scaffold suture was pulled taut via the 12 mm port and we noted good apposition of the mesh to the anterior abdominal wall. The mesh was then fixed to the abdominal wall with absorbable tacks, 30 in total. THis was performed sequentially through the 4 peripheral trocars in a 360 degree fashion. The scaffold suture was then released and the scaffolding removed via the right upper quadrant port. The abdomen was checked for hemostasis. It was irrigated with warm saline solution and aspirated free of all fluid and particulate matter. The trocars were then removed under direct vision and the abdomen was desufflated. The midline wound protector and trocar were then removed. This left a 4 cm defect with straight flat mesh at the base. The fascia was closed with interrupted 0 Vicryl sutures and the umbilicus reconstructed with 3-0 vicryl. The skin incisions were closed with monocryl and Dermabond was applied to the surface of all incisions. All sponge, needle, and instrument counts were correct at the conclusion of the case. The patient was allowed to awaken from anesthesia without difficulty and taken to the post anesthesia care unit in good condition.
== END 2020-05-31 14:39 | disposition home or self-care (01) ==
LOC: SDS 09:00 → MS2 14:07 → SDS 05-31 14:39
PROVIDERS: ATTEND Surgery
PROC: 0WUF4JZ Supplement Abdominal Wall with Synthetic Substitute, Percutaneous Endoscopic Approach (ICD-10-PCS; principal; 2020-05-30 10:15)
DX: K43.6 Other and unspecified ventral hernia with obstruction, without gangrene (principal); E66.9 Obesity, unspecified; Z68.39 Body mass index [BMI] 39.0-39.9, adult; Z87.891 Personal history of nicotine dependence
CPT/HCPCS: 36415; 49653; 80048; 85027; A9270; J0131; J0690; J1170; J7120; 81025

== ENCOUNTER 2021-01-23 12:48 | Outpatient (CLI) | payer MEDICARE, OTHER ==
--- NOTE | 2021-01-23 17:57 | DEXA Report ---
PROCEDURE: Dexa Spine and/or Hip INDICATIONS: POST MENOPAUSAL TECHNIQUE: Dual energy x-ray absorptiometry (DXA) was performed on a [employer] System. Regions measur ed are the AP Spine, femoral neck, and if needed forearm. COMPARISON: 12/09/2018. FINDINGS: Lumbar Spine: Bone Mineral Density 1.247 g/cm/cm,T score 0.6, normal Left Hip: Bone Mineral Density 0.899 g/cm/cm,T score -0.9, normal Left Femoral Neck: Bone Mineral Density 0.801 g/cm/cm, T score -1.7, osteopenia (T score greater or equal to -1.0: NORMAL) (T score from -1.1 to -2.4: OSTEOPENIA) (T score less than or equal to -2.5 to: OSTEOPOROSIS) Impression: Osteopenia. Bone marrow density has increased 2.6% interval since prior exam obtained 12/09. Patients with diagnosis of osteoporosis or osteopenia should have regular bone mineral density assess ment. For those eligible for Medicare, routine testing is allowed once every 2 years. Testing frequ ency can be increased for patients who have rapidly progressing disease or for those who are receivin g medical therapy to restore bone mass. Reviewed by: Maame Carranza MD, PhD on 01/23/2021 5:55 PM PDT Approved by: Maame Carranza MD, PhD on 01/23/2021 5:55 PM PDT Station ID: [id number]
== END 2021-01-23 12:49 | disposition home or self-care (01) ==
LOC: DI 12:48
PROVIDERS: ATTEND Internal Medicine Hematology & Oncology
DX: M85.88 Other specified disorders of bone density and structure, other site (principal)

== ENCOUNTER 2021-03-07 08:00 | Outpatient (CLI) | payer MEDICARE, OTHER ==
[2021-03-07 13:33] LABS: BUN - BLOOD UREA NITROGEN 14 mg/dL (6-20); CALCIUM 9.9 mg/dL (8.5-10.3); CARBON DIOXIDE - CO2 29 mmol/L (21-32); CHLORIDE 103 mmol/L (101-111); CHOL/HDL RATIO 2.6 (<4.4); CHOLESTEROL 218 mg/dL; CREATININE 0.9 mg/dL (0.4-1.0); GFR - MDRD 61 (>89); GLUCOSE 104 mg/dL (70-100); HDL CHOLESTEROL 83 mg/dL; LDL CHOLESTEROL,CALCULATED 119 mg/dL; LDL/HDL RATIO 1.4 (<4.4); POTASSIUM 4.3 mmol/L (3.5-5.0); SODIUM 141 mmol/L (135-145); TRIGLYCERIDES 78 mg/dL; VLDL CHOLESTEROL 16 mg/dL
== END 2021-03-07 23:59 | disposition home or self-care (01) ==
LOC: LAB.WCP 08:00
PROVIDERS: ATTEND Physician Assistant Medical
DX: Z01.84 Encounter for antibody response examination (principal); E78.5 Hyperlipidemia, unspecified
CPT/HCPCS: 36415; 80048; 80061; 83721; 86769

== ENCOUNTER 2021-09-18 11:01 | Outpatient (CLI) | payer MEDICARE, OTHER ==
--- NOTE | 2021-09-19 07:38 | Mammography Report ---
UNILATERAL LEFT DIGITAL SCREENING MAMMOGRAM 3D/2D: 09/18/2021 CLINICAL: Routine screening. Personal history of right breast cancer. Comparison is made to exams dated: 02/18/2020 mammogram, 09/16/2018 mammogram, 09/15/2018 mammogram, an d 01/01/2018 mammogram - [facility]. There are scattered fibroglandular elements in left breast. Left breast implant is stable. No significant masses, calcifications, or other findings are seen in the breast. There has been no significant interval change. IMPRESSION: NEGATIVE There is no mammographic evidence of malignancy. A 1 year screening mammogram is recommended. This exam was interpreted at Station ID: [id number]. NOTE: For mammograms, a report in lay terms will be sent to the patient. Approximately 15% of breast malignancies will not be visualized mammographically. In the management of a palpable breast mass, a negative mammogram must not discourage biopsy of a clinically suspicious lesion. Electronically Signed By: Teddy [email or web address]/[email or web address]:09/18/2021 12:42:56 ACR BI-RADS Category 1: Negative 3341F PARENCHYMAL PATTERN: (A) - The breast(s) demonstrate(s) scattered fibroglandular densities. BI-RADS CATEGORY: (1) - 1 RECOMMENDATION: (ANNUAL) - Recommend routine annual screening mammography. [id number] 1 year screening LATERALITY: (B)
== END 2021-09-18 11:02 | disposition home or self-care (01) ==
LOC: DI.N 11:01
PROVIDERS: ATTEND Internal Medicine Hematology & Oncology
DX: Z12.31 Encounter for screening mammogram for malignant neoplasm of breast (principal); Z85.3 Personal history of malignant neoplasm of breast

== ENCOUNTER 2022-06-19 13:54 | Outpatient (CLI) | payer MEDICARE, OTHER ==
[2022-06-19 14:52] LABS: CHOL/HDL RATIO 2.7 (<4.4); CHOLESTEROL 191 mg/dL; HDL CHOLESTEROL 72 mg/dL; LDL CHOLESTEROL,CALCULATED 102 mg/dL; LDL/HDL RATIO 1.4 (<4.4); TRIGLYCERIDES 84 mg/dL; VLDL CHOLESTEROL 17 mg/dL
== END 2022-06-19 13:55 | disposition home or self-care (01) ==
LOC: LAB 13:54
PROVIDERS: ATTEND Physician Assistant Medical
DX: E78.5 Hyperlipidemia, unspecified (principal)
CPT/HCPCS: 36415; 80061; 83721

== ENCOUNTER 2023-05-21 09:31 | Outpatient (CLI) | payer MEDICARE, OTHER ==
[2023-05-21 09:44] LABS: BASOPHILS % (AUTO) 0.6 %; EOSINOPHILS # (AUTO) 0.3 10^3/uL (0.0-0.7); EOSINOPHILS % (AUTO) 4.6 %; HCT - HEMATOCRIT 44.8 % (37.0-47.0); HGB - HEMOGLOBIN 14.1 g/dL (12.0-16.0); LYMPHOCYTES # (AUTO) 1.8 10^3/uL (1.5-3.5); LYMPHOCYTES % (AUTO) 27.3 %; MEAN CORPUSCULAR HEMOGLOBIN 31.3 pg (27.0-31.0); MEAN CORPUSCULAR HGB CONC 31.5 g/dL (32.0-36.0); MEAN CORPUSCULAR VOLUME 99.3 fL (81.0-99.0); MEAN PLATELET VOLUME 9.9 fL (7.9-10.8); MONOCYTES # (AUTO) 0.6 10^3/uL (0.0-1.0); MONOCYTES % (AUTO) 8.3 %; NEUTROPHILS % (AUTO) 58.9 %; PLT - PLATELET COUNT 257 10^3/uL (130-450); RED BLOOD COUNT 4.51 10^6/uL (4.20-5.40); RED CELL DISTRIBUTION WIDTH 12.7 % (12.0-15.0); WHITE BLOOD COUNT 6.7 x10^3/uL (4.8-10.8)
[2023-05-21 10:15] LABS: ALBUMIN 4.1 g/dL (3.2-5.5); ALBUMIN/GLOBULIN RATIO 1.3 (1.0-2.2); ALKALINE PHOSPHATASE 104 IU/L (42-121); ALT ALANINE AMINOTRANSFERASE 12 IU/L (10-60); AST ASPARTATE AMINOTRANSFERASE 18 IU/L (10-42); BILIRUBIN,TOTAL 0.5 mg/dL (0.2-1.0); BUN - BLOOD UREA NITROGEN 14 mg/dL (6-20); CALCIUM 10.2 mg/dL (8.5-10.3); CARBON DIOXIDE - CO2 33 mmol/L (21-32); CHLORIDE 102 mmol/L (101-111); CHOL/HDL RATIO 2.5 (<4.4); CHOLESTEROL 152 mg/dL; GFR - MDRD 53 (>89); GLUCOSE 102 mg/dL (74-104); HDL CHOLESTEROL 62 mg/dL; LDL CHOLESTEROL,CALCULATED 75 mg/dL; LDL/HDL RATIO 1.2 (<4.4); POTASSIUM 4.7 mmol/L (3.5-4.5); SODIUM 141 mmol/L (135-145); TOTAL PROTEIN 7.3 g/dL (6.4-8.9); TRIGLYCERIDES 77 mg/dL (48-352); VLDL CHOLESTEROL 15 mg/dL
== END 2023-05-21 09:32 | disposition home or self-care (01) ==
LOC: LAB 09:31
PROVIDERS: ATTEND Physician Assistant Medical
DX: E78.5 Hyperlipidemia, unspecified (principal); K21.9 Gastro-esophageal reflux disease without esophagitis
CPT/HCPCS: 36415; 80053; 80061; 83721; 85025

== ENCOUNTER 2023-08-27 11:05 | Outpatient (CLI) | payer MEDICARE, OTHER ==
--- NOTE | 2023-08-28 11:00 | Mammography Report ---
UNILATERAL LEFT DIGITAL SCREENING MAMMOGRAM 3D/2D WITH AUGMENTATION: 08/27/2023 CLINICAL: Routine screening. Personal history of right breast cancer. Comparison is made to exams dated: 09/18/2021 mammogram, 02/18/2020 mammogram, 10/27/2018 mammogram, 07/2019 mammogram, 09/15/2018 mammogram, and 01/01/2018 mammogram - [facility]. There are scattered areas of fibroglandular density in the left breast (category b / 25%-50% glandula r tissue). Left breast implant is stable. No significant masses, calcifications, or other findings are seen in the breast. There has been no significant interval change. IMPRESSION: BENIGN There is no mammographic evidence of malignancy. A 1 year screening mammogram is recommended. This exam was interpreted at Station ID: [id number]. NOTE: For mammograms, a report in lay terms will be sent to the patient. Approximately 15% of breast malignancies will not be visualized mammographically. In the management of a palpable breast mass, a negative mammogram must not discourage biopsy of a clinically suspicious lesion. Electronically Signed By: Vanessa Lopez M.D., PH.D eb/penrad:08/27/2023 22:15:13 letter sent: No_Letter ACR BI-RADS Category 2: Benign Finding(s) 3342F PARENCHYMAL PATTERN: (A) - The breast(s) demonstrate(s) scattered fibroglandular densities. BI-RADS CATEGORY: (2) - 2 Mammogram [id number] 1 year screening LATERALITY: (B)
== END 2023-08-27 11:06 | disposition home or self-care (01) ==
LOC: DI 11:05
PROVIDERS: ATTEND Internal Medicine Hematology & Oncology
DX: Z12.31 Encounter for screening mammogram for malignant neoplasm of breast (principal); Z85.3 Personal history of malignant neoplasm of breast; R92.322 Mammographic fibroglandular density, left breast; Z98.82 Breast implant status

== ENCOUNTER 2023-09-28 11:08 | Outpatient (CLI) | payer MEDICARE, OTHER | END 2023-09-28 23:59 | disposition critical access hospital (66) | LOC: EMS 11:08 | DX: R10.32 Left lower quadrant pain (principal) | CPT/HCPCS: A0425; A0427 ==

== ENCOUNTER 2023-09-28 11:24 | Emergency (ER) | payer MEDICARE, OTHER ==
--- NOTE | 2023-09-28 11:31 | ED Physician Documentation ---
PD HPI ABD PAIN - Stated complaint Stated Complaint: LLQ PX - History obtained from History obtained from: Patient, EMS (they state gave pt fentanyl IV enroute with some improvement of pain from 10 to 7 out of 10.) - History of Present Illness Timing - onset: How many hours ago (2), Today Timing - duration: Hours (2) Timing - details: Abrupt onset, Still present Quality: Aching, Sharp, Pain Location: LLQ Radiation: Left flank Improved by: No: Eating, Laying still Worsened by: No: Eating, Moving, Breathing Associated symptoms: Nausea, Vomiting. No: Fever, Diarrhea, Near syncope / syncope Similar symptoms before: Has not had sx before Review of Systems Constitutional: denies: Fever, Chills GI: reports: Abdominal Pain, Nausea. 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 HEENT: Tonsil/Adenoidectomy - Present Medications Home Medications: Ambulatory Orders Medication Instructions Recorded Confirmed Simvastatin 20 mg PO QPM 09/07/14 09/28/23 oxyBUTYnin chloride [Ditropan Xl] 15 mg PO DAILY 10/22/18 09/28/23 Anastrozole 1 mg PO DAILY 02/17/19 09/28/23 Cholecalciferol (Vitamin D3) 5,000 unit PO DAILY 02/17/19 09/28/23 [Vitamin D3] Apixaban [Eliquis] 5 mg PO DAILY 12/18/22 09/28/23 Metoprolol Tartrate [Lopressor] 50 mg PO DAILY 12/18/22 09/28/23 Ondansetron Odt [Zofran] 4 mg TL Q6H PRN #10 tablet 09/28/23 Oxycodone HCl/Acetaminophen 1 each PO Q6H PRN #20 tablet 09/28/23 [Percocet 5-325 mg Tablet] Tamsulosin [Flomax] 0.4 mg PO DAILY #5 cap 09/28/23 - Allergies Allergies/Adverse Reactions: Allergies Allergy/AdvReac Type Severity Reaction Status Date / Time pseudoephedrine HCl * Allergy Rash Verified 06/19/22 13:16 [From Actifed] triprolidine HCl * Allergy Rash Verified 06/19/22 13:16 [From Actifed] - Social History Does the pt smoke?: No Smoking Status: Never smoker Does the pt drink ETOH?: No Does the pt have substance abuse?: No - POLST Patient has POLST: No PD ED PE NORMAL - Vitals Vital signs reviewed: Yes - General General: Alert and oriented X 3, Well developed/nourished, Other (appears very uncomfortable in pain. ) - Cardiac Cardiac: RRR, No murmur - Respiratory Respiratory: No respiratory distress, Clear bilaterally - Abdomen Abdomen: Normal bowel sounds, Soft, Non distended, No organomegaly, Other (mild tneder left lower abd and left flank without guarding nor percussion tenderness. ) - Derm Derm: Normal color, Warm and dry Results - Vitals Vitals: Vital Signs - 24 hr 09/28/23 09/28/23 11:23 13:22 Temperature 36.6 C Heart Rate 106 H 104 H Respiratory 22 20 Rate Blood Pressure 149/109 H 122/54 L O2 Saturation 95 97 Oxygen O2 Source Room air - Labs Labs: Laboratory Tests 09/28/23 09/28/23 11:38 11:38 WBC 9.3 RBC 4.51 Hgb 13.9 Hct 44.1 MCV 97.8 MCH 30.8 MCHC 31.5 L RDW 13.7 Plt Count 221 MPV 9.8 Neut # (Auto) 6.8 H Lymph # (Auto) 1.5 [place] # (Auto) 0.7 Eos # (Auto) 0.3 Baso # (Auto) 0.1 Absolute Nucleated RBC 0.00 Nucleated RBC % 0.0 Sodium 140 Potassium 4.0 Chloride 104 Carbon Dioxide 27 Anion Gap 9.0 BUN 11 Creatinine 0.9 Estimated GFR (MDRD) 60 L Glucose 113 H Calcium 9.8 Total Bilirubin 0.5 AST 20 ALT 16 Alkaline Phosphatase 94 Total Protein 7.1 Albumin 4.0 Globulin 3.1 Albumin/Globulin Ratio 1.3 Lipase 36 - Rads (name of study) abd/pelvic CT Relevant Findings:: Prelim report reviewed, EMP independent interpretation of test (left hydronephrosis with 3 mm stone at distal ureter almost to the bladder. ) PD Medical Decision Making - ED course Complexity details: reviewed results (ureteral stone with hydronephrosis.), re- evaluated patient (The patient was considerably improved with a combination of IV ketorolac, Zofran, Dilaudid. She declined further medication at this time.), considered differential, d/w patient Departure - Departure Disposition: 01 Home, Self Care Clinical Impression: Left sided abdominal pain, Ureterolithiasis Condition: Stable Record reviewed to determine appropriate education?: Yes Instructions: ED Stone Renal W Colic Follow-Up: Graciela Layen PA-C [Primary Care Provider] - Oc Worley MD [Provider Admit Priv/Credential] - Prescriptions: Tamsulosin [Flomax] 0.4 mg PO DAILY #5 cap Oxycodone HCl/Acetaminophen [Percocet 5-325 mg Tablet] 1 each PO Q6H PRN #20 tablet PRN Reason: pain Ondansetron Odt [Zofran] 4 mg TL Q6H PRN #10 tablet PRN Reason: Nausea / Vomiting Comments: You do have a small kidney stone passing in the left ureter. It is almost to the bladder at this point. It has a high probability of passing within a day or 2 completely. It really needs to just make it to the bladder as the ureter is the area that causes the pain and back pressuring. Even after passing the stone, there will often be some spasms and inflammation l eft over so some pains may persist to some degree for a couple of days. For that reason we generally use a antispasmodic for the ureter called him to loosen to try to reduce spasming's both to promote passage and subsequently as the ureter is healing. Continue with your usual medications otherwise. Add Tylenol 500 to 650 mg 4 times daily regularly for the next several days or so. To that add oxycodone/acetaminophen if needed for worse pain. I also prescribed ondansetron/Zofran to help with nausea as needed. I sent your prescriptions to the [facility] pharmacy in [place], your preferred pharmacy. I would anticipate improvement and resolution of your symptoms over the next several days if not sooner. Recheck if not better in that timeframe and return to the ER if worse. My narcotic instructions I am prescribing a short course of narcotic pain medication for you. These are potentially dangerous and addictive medications that should be used carefully. These medications may constipate you. Take an tike-ujy-flehlqr stool softener such as docusate twice daily with plenty of water while taking these medications. If you go 24 hours without a bowel movement, take xozc-ujc-eokquyv MiraLAX, per package instructions. Do not drink or drive while taking these medications. If you received narcotic or sedating medications while in the emergency department do not drive for 24 hours. Store this medication in a safe, secure place and out of reach of children. It is a violation of federal law to give or sell this medication to another person or to use in a manner other than prescribed. The ED will not refill narcotic prescriptions, including prescriptions lost or stolen. You can dispose of unwanted medications at the [facility]'s office or at several pharmacies such as [facility]. Forms: PCP List Discharge Date/Time: 09/28/23 13:48
[2023-09-28] MEDS: HYDROmorphone 1 MG/ML CARPUJECT IVP STA (11:39)
[2023-09-28] MEDS: ONDANSETRON 4 MG/2 ML VIAL IVP STA (11:39)
[2023-09-28 11:44] LABS: BASOPHILS # (AUTO) 0.1 10^3/uL (0.0-0.1); BASOPHILS % (AUTO) 0.5 %; EOSINOPHILS # (AUTO) 0.3 10^3/uL (0.0-0.7); EOSINOPHILS % (AUTO) 2.8 %; HCT - HEMATOCRIT 44.1 % (37.0-47.0); HGB - HEMOGLOBIN 13.9 g/dL (12.0-16.0); LYMPHOCYTES # (AUTO) 1.5 10^3/uL (1.5-3.5); LYMPHOCYTES % (AUTO) 15.5 %; MEAN CORPUSCULAR HEMOGLOBIN 30.8 pg (27.0-31.0); MEAN CORPUSCULAR HGB CONC 31.5 g/dL (32.0-36.0); MEAN CORPUSCULAR VOLUME 97.8 fL (81.0-99.0); MEAN PLATELET VOLUME 9.8 fL (7.9-10.8); MONOCYTES # (AUTO) 0.7 10^3/uL (0.0-1.0); MONOCYTES % (AUTO) 7.5 %; NEUTROPHILS # (AUTO) 6.8 10^3/uL (1.5-6.6); NEUTROPHILS % (AUTO) 73.4 %; PLT - PLATELET COUNT 221 10^3/uL (130-450); RED BLOOD COUNT 4.51 10^6/uL (4.20-5.40); RED CELL DISTRIBUTION WIDTH 13.7 % (12.0-15.0); WHITE BLOOD COUNT 9.3 x10^3/uL (4.8-10.8)
[2023-09-28 11:57] LABS: ALBUMIN/GLOBULIN RATIO 1.3 (1.0-2.2); BILIRUBIN,TOTAL 0.5 mg/dL (0.2-1.0); CALCIUM 9.8 mg/dL (8.5-10.3); CREATININE 0.9 mg/dL (0.6-1.3); TOTAL PROTEIN 7.1 g/dL (6.4-8.9)
[2023-09-28] MEDS ORDERED: iohexoL-300 100 ML VIAL ONE (12:11)
[2023-09-28] MEDS: iohexoL-300 100 ML VIAL IVP ONE (12:40)
--- NOTE | 2023-09-28 12:56 | CT Report ---
PROCEDURE: Abdomen/Pelvis W INDICATIONS: acute left flank pain today CONTRAST: 100ml omni 300 TECHNIQUE: After the administration of intravenous contrast, a CT scan of the abdomen and pelvis was performed. Images were recorded and evaluated at appropriate window settings. Reformats: coronal and sagittal. F or radiation dose reduction, the following was used: automated exposure control, adjustment of mA and /or kV according to patient size. COMPARISON: 03/02/2020 FINDINGS: Image quality: Diagnostic. Lower chest: There is a prominent hiatal/right diaphragmatic hernia seen, with the entire stomach and large portions of the transverse colon posterior to the heart. Liver: No solid mass. Diffuse fatty liver infiltration can be seen. Gallbladder and biliary tree: Wi thin normal limits. Spleen: No splenomegaly. Pancreas: No pancreatic ductal dilation. Adrenals: No adrenal nodule. Kidneys and ureters: There is a 3 mm obstructing stone seen within the left ureterovesicular junction , as on series 2 image 120 and on series 4 image 78. There is associated left-sided hydroureter and h ydronephrosis. The kidneys demonstrate normal size and enhance symmetrically. No nonobstructing kidney stones are se en. Stomach, bowel and peritoneum: No bowel distension. No pathologic free fluid. Diverticulosis can be s een, without khanh findings of active diverticulitis. A normal appendix is seen. Lymph nodes: No central or retroperitoneal adenopathy. Vessels: No infrarenal aortic aneurysm. PELVIS Reproductive organs: The uterus demonstrates normal size. Discussed cases can be seen within the uter us, which are attributed to fibroids. No adnexal masses are seen on either side. Bladder: No abnormal wall thickening, accounting for underdistention. Pelvic lymph nodes: No pelvic adenopathy by size criteria. Bones: No aggressive osseous abnormality. Mild dextroconvex scoliotic curvature is seen. Age-appropri ate degenerative changes are seen. Osteitis pubis can be seen, which is not considered to be abnorm al for a female patient of this age. Other: No significant ventral or inguinal hernia. IMPRESSION: 3 mm obstructing stone seen at the left ureterovesicular junction, with associated left-sided hydrour eter and hydronephrosis. No nonobstructing kidney stones are seen. A massive hiatal/right diaphragmatic hernia is again seen, which contains the entire stomach and larg e portions of the transverse colon. This is similar to 2019. Additional findings: Fatty liver infiltration Normal appendix Diverticulosis, without findings of active diverticulitis. Uterine fibroids Reviewed by: Devon Mata MD on 09/28/2023 11:54 AM [facility] Approved by: Devon Mata MD on 09/28/2023 11:54 AM [facility] Station ID: [id number]
[2023-09-28 13:27] VITALS: BP 122/54; O2SAT 97
[2023-09-28] MEDS: TAMSULOSIN 0.4 MG CAPSULE PO STA (13:42)
[2023-09-28] MEDS: KETOROLAC 15 MG/ML VIAL IVP STA (13:43)
== END 2023-09-28 13:48 | disposition home or self-care (01) ==
LOC: ED 11:24
DX: N13.2 Hydronephrosis with renal and ureteral calculous obstruction (principal)
CPT/HCPCS: 36415; 74177; 80053; 83690; 85025; 96374; 96375; 99284; A9270; J1170; Q9967